=== PATIENT | male | born 1945 | race Caucasian/White ===

== ENCOUNTER 2018-02-25 19:17 | Inpatient (IN) ==
[2018-02-25] MEDS ORDERED: Ketorolac Inj 30 MG/ML (IVP) Vial IV.PUSH ONE (19:51)
--- NOTE | 2018-02-25 19:51 | ED ---
HPI General Chief Complaint: Abdominal Pain Stated Complaint: UPPER ABD PAIN X3DAYS Time Seen by Provider: 02/25/18 19:36 Source: patient and family Mode of arrival: ambulatory Limitations: no limitations History of Present Illness HPI narrative: Patient presents with history of right sided abdominal pain of acute onset this morning about 8 AM. Patient had chills for about 2 hours. Persistent nausea but no emesis. Stools harder than normal and small for the last 3 days. No history of significant problems except for dyspepsia. Patient has had a CABG no cardiac symptomatology. Related Data Home Medications Medication Instructions Recorded Confirmed aspirin 81 mg PO DAILY 02/25/18 02/25/18 atenolol 50 mg PO DAILY 02/25/18 02/25/18 diazepam 10 mg PO BID 02/25/18 02/25/18 ezetimibe 10 mg PO DAILY 02/25/18 02/25/18 lisinopril-hydrochlorothiazide 1 tab PO DAILY 02/25/18 02/25/18 pantoprazole 40 mg PO DAILY 02/25/18 02/25/18 simvastatin 40 mg PO QPM 02/25/18 02/25/18 tramadol 50 mg PO QID 02/25/18 02/25/18 Allergies Allergy/AdvReac Type Severity Reaction Status Date / Time No Known Allergies Allergy Unverified 02/25/18 19:41 Review of Systems ROS: all other systems reviewed are negative [facility] Medical History Medical History Anxiety (Acute) Chronic pain (Acute) Coronary artery disease (Acute) GERD (gastroesophageal reflux disease) (Acute) Hypercholesterolemia (Acute) Hypertension (Acute) Surgical History Surgical History H/O hemorrhoidectomy (Acute) H/O thumb surgery (Acute) Hx of CABG (Acute) Family History Family History Father Myocardial infarct Nuclear sclerosis Social History Social History Substance History: No History of Abuse Second Hand Smoke Exposure: No Smoking Status: Former smoker Tobacco Type: Cigarettes Number of Pack-Years (if former smoker): 22 Smoking End Date: appx 1986 How Often Do You Have a Drink Containing Alcohol: Never Hx Recent Travel: Yes ([facility]) Recent Travel in [facility] within the Last 8 Weeks: Yes Recent Out of Country Travel within the Last 8 Weeks: No Exam Narrative Exam Narrative: GENERAL: Alert and oriented with abdominal pain to epigastrium and right upper quadrant SKIN: Focused skin assessment warm/dry. HEAD: Atraumatic. Normocephalic. EYES: Pupils equal and round. No scleral icterus. No injection or drainage. ENT: No nasal bleeding or discharge. Mucous membranes pink and moist. NECK: Trachea midline. No JVD. CARDIOVASCULAR: Regular rate and rhythm. No murmur appreciated. RESPIRATORY: No accessory muscle use. Clear to auscultation. Breath sounds equal bilaterally. GASTROINTESTINAL: Abdomen with epigastric and right upper quadrant pain and guarding. No rebound. Normal bowel sounds. Hepatic and splenic margins not palpable. MUSCULOSKELETAL: No obvious deformities. No clubbing. No cyanosis. No edema. NEUROLOGICAL: Awake and alert. No obvious cranial nerve deficits. Motor grossly within normal limits. Normal speech. PSYCHIATRIC: Appropriate mood and affect; insight and judgment normal. Course Initial Documented Vital Signs Temperature 98.1 F 02/25/18 19:23 Pulse Rate 69 02/25/18 19:23 Respiratory Rate 18 02/25/18 19:23 Blood Pressure 164/76 H 02/25/18 19:23 Pulse Oximetry 99 02/25/18 19:23 Last Documented Vital Signs Temperature 100.1 F H 02/27/18 00:00 Pulse Rate 86 02/27/18 00:00 Respiratory Rate 18 02/27/18 00:00 Blood Pressure 131/64 02/27/18 00:00 Pulse Oximetry 95 02/27/18 00:00 Critical Care Time Critical Care Time: No Medical Decision Making MDM Narrative Medical decision making narrative: Patient has findings consistent with choledocholithiasis with obstruction. Patient admitted with Dr. Jain for further evaluation and treatment. Medical Screen Exam Complete: Yes Emergency Medical Condition: Yes Lab Data Result diagrams: 02/26/18 06:15 02/26/18 06:15 Lab Results 02/25/18 02/25/18 02/25/18 Range/Units 20:00 20:00 20:00 CBC w Diff Slide review pending WBC 6.1 (4.0-11.0) th/mm3 RBC 5.07 (4.50-5.90) mil/mm3 Hgb 15.3 (13.0-17.0) gm/dL Hct 44.7 (39.0-51.0) % MCV 88.2 (80.0-100.0) fL MCH 30.2 (27.0-34.0) pg MCHC 34.3 (32.0-36.0) % RDW 12.4 (11.6-17.2) % Plt Count 173 (150-450) th/mm3 MPV 7.8 (7.0-11.0) fL Neut % (Auto) 89.5 H (16.0-70.0) % Lymph % (Auto) 3.7 L (9.0-44.0) % [place] % (Auto) 4.2 (0.0-8.0) % Eos % (Auto) 0.1 (0.0-4.0) % Baso % (Auto) 2.5 H (0.0-2.0) % Neut # (Auto) 5.4 (1.8-7.7) th/mm3 Lymph # (Auto) 0.2 L (1.0-4.8) th/mm3 [place] # (Auto) 0.3 (0.0-0.9) th/mm3 Eos # (Auto) 0.0 (0.0-0.4) th/mm3 Baso # (Auto) 0.2 (0.0-0.2) th/mm3 WBC Differential . Diff Scan Auto diff confirmed Differential Comment . Sodium 128 L (136-145) meq/L Potassium 3.5 (3.5-5.1) meq/L Chloride 91 L (98-107) meq/L Carbon Dioxide 24.9 (21.0-32.0) meq/L Anion Gap 12 (5-15) meq/L BUN 17 (7-18) mg/dL Creatinine 1.30 (0.60-1.30) mg/dL Estimated GFR 54 L (>89) mL/min Random Glucose 109 H (74-106) mg/dL Lactic Acid 1.0 (0.4-2.0) mmol/L Calcium 8.5 (8.5-10.1) mg/dL Prot Corrected Calcium (8.5-10.1) mg/dL Total Bilirubin 6.9 H (0.2-1.0) mg/dL AST 73 H (15-37) U/L ALT 107 H (12-78) U/L Alkaline Phosphatase 64 (45-117) U/L Total Protein 7.1 (6.4-8.2) g/dL Albumin 3.8 (3.4-5.0) g/dL Lipase 95 (73-393) U/L Urine Color (Yellw/Straw) Urine Clarity (Clear) Urine pH (5.0-8.5) Ur Specific [place] (1.002-1.035) Urine Protein (Neg-Trace) mg/dL Urine Glucose (UA) (Negative) mg/dL Urine Ketones (Negative) mg/dL Urine Occult Blood (Negative) Urine Nitrate (Negative) Urine Bilirubin (Negative) Urine Ictotest (Negative) Urine Urobilinogen (Less than 2) mg/dL Ur Leukocyte Esterase (Negative) Urine RBC (0-3) /hpf Ur Squamous Epith Cells (0-5) /hpf Micro UA Comment Ur Microscopic Review Urine Culture Comments 02/25/18 02/25/18 02/26/18 Range/Units 22:00 23:30 06:15 CBC w Diff Auto diff final WBC 9.0 (4.0-11.0) th/mm3 RBC 4.75 (4.50-5.90) mil/mm3 Hgb 14.4 (13.0-17.0) gm/dL Hct 42.0 (39.0-51.0) % MCV 88.3 (80.0-100.0) fL MCH 30.3 (27.0-34.0) pg MCHC 34.3 (32.0-36.0) % RDW 13.0 (11.6-17.2) % Plt Count 160 (150-450) th/mm3 MPV 7.6 (7.0-11.0) fL Neut % (Auto) 94.6 H (16.0-70.0) % Lymph % (Auto) 2.8 L (9.0-44.0) % [place] % (Auto) 1.3 (0.0-8.0) % Eos % (Auto) 0.1 (0.0-4.0) % Baso % (Auto) 1.2 (0.0-2.0) % Neut # (Auto) 8.5 H (1.8-7.7) th/mm3 Lymph # (Auto) 0.3 L (1.0-4.8) th/mm3 [place] # (Auto) 0.1 (0.0-0.9) th/mm3 Eos # (Auto) 0.0 (0.0-0.4) th/mm3 Baso # (Auto) 0.1 (0.0-0.2) th/mm3 WBC Differential . Diff Scan Differential Comment . Sodium 132 L (136-145) meq/L Potassium 3.6 (3.5-5.1) meq/L Chloride 97 L (98-107) meq/L Carbon Dioxide 23.4 (21.0-32.0) meq/L Anion Gap 12 (5-15) meq/L BUN 15 (7-18) mg/dL Creatinine 1.20 (0.60-1.30) mg/dL Estimated GFR 59 L (>89) mL/min Random Glucose 100 (74-106) mg/dL Lactic Acid (0.4-2.0) mmol/L Calcium 7.4 L* D (8.5-10.1) mg/dL Prot Corrected Calcium 8.1 L (8.5-10.1) mg/dL Total Bilirubin 7.3 H (0.2-1.0) mg/dL AST 58 H (15-37) U/L ALT 79 H (12-78) U/L Alkaline Phosphatase 56 (45-117) U/L Total Protein 5.8 L D (6.4-8.2) g/dL Albumin 2.9 L D (3.4-5.0) g/dL Lipase (73-393) U/L Urine Color Yellow (Yellw/Straw) Urine Clarity Clear (Clear) Urine pH 6.0 (5.0-8.5) Ur Specific [place] 1.020 (1.002-1.035) Urine Protein Trace (Neg-Trace) mg/dL Urine Glucose (UA) Negative (Negative) mg/dL Urine Ketones 40 H (Negative) mg/dL Urine Occult Blood Small H (Negative) Urine Nitrate Negative (Negative) Urine Bilirubin Moderate H (Negative) Urine Ictotest Positive H (Negative) Urine Urobilinogen 2.0 H (Less than 2) mg/dL Ur Leukocyte Esterase Negative (Negative) Urine RBC 0-3 (0-3) /hpf Ur Squamous Epith Cells 0-5 (0-5) /hpf Micro UA Comment Culture not ind Ur Microscopic Review Microscopic reviewed Urine Culture Comments Culture not ind 02/26/18 Range/Units 06:15 CBC w Diff Auto diff final WBC 12.6 H (4.0-11.0) th/mm3 RBC 4.36 L (4.50-5.90) mil/mm3 Hgb 13.6 (13.0-17.0) gm/dL Hct 39.6 (39.0-51.0) % MCV 90.8 (80.0-100.0) fL MCH 31.1 (27.0-34.0) pg MCHC 34.2 (32.0-36.0) % RDW 12.2 (11.6-17.2) % Plt Count 148 L (150-450) th/mm3 MPV 7.9 (7.0-11.0) fL Neut % (Auto) 88.8 H (16.0-70.0) % Lymph % (Auto) 4.4 L (9.0-44.0) % [place] % (Auto) 6.6 (0.0-8.0) % Eos % (Auto) 0.1 (0.0-4.0) % Baso % (Auto) 0.1 (0.0-2.0) % Neut # (Auto) 11.2 H (1.8-7.7) th/mm3 Lymph # (Auto) 0.6 L (1.0-4.8) th/mm3 [place] # (Auto) 0.8 (0.0-0.9) th/mm3 Eos # (Auto) 0.0 (0.0-0.4) th/mm3 Baso # (Auto) 0.0 (0.0-0.2) th/mm3 WBC Differential . Diff Scan Differential Comment . Sodium (136-145) meq/L Potassium (3.5-5.1) meq/L Chloride (98-107) meq/L Carbon Dioxide (21.0-32.0) meq/L Anion Gap (5-15) meq/L BUN (7-18) mg/dL Creatinine (0.60-1.30) mg/dL Estimated GFR (>89) mL/min Random Glucose (74-106) mg/dL Lactic Acid (0.4-2.0) mmol/L Calcium (8.5-10.1) mg/dL Prot Corrected Calcium (8.5-10.1) mg/dL Total Bilirubin (0.2-1.0) mg/dL AST (15-37) U/L ALT (12-78) U/L Alkaline Phosphatase (45-117) U/L Total Protein (6.4-8.2) g/dL Albumin (3.4-5.0) g/dL Lipase (73-393) U/L Urine Color (Yellw/Straw) Urine Clarity (Clear) Urine pH (5.0-8.5) Ur Specific [place] (1.002-1.035) Urine Protein (Neg-Trace) mg/dL Urine Glucose (UA) (Negative) mg/dL Urine Ketones (Negative) mg/dL Urine Occult Blood (Negative) Urine Nitrate (Negative) Urine Bilirubin (Negative) Urine Ictotest (Negative) Urine Urobilinogen (Less than 2) mg/dL Ur Leukocyte Esterase (Negative) Urine RBC (0-3) /hpf Ur Squamous Epith Cells (0-5) /hpf Micro UA Comment Ur Microscopic Review Urine Culture Comments Imaging Data Radiologist's impression: Abdomen/Pelvis CT 02/25/18 19:51 CONCLUSION: 1. 2 calcified gallstones. 2. Colonic diverticula without radiographic evidence of diverticulitis. Gallbladder Ultrasound 02/25/18 19:51 CONCLUSION: 1. 2 gallstones and probable sludge within the lumen. 2. Marked dilation of the common hepatic duct measuring up to 14 mm. No definite intraluminal defects seen. 3. Mild dilation of the central intrahepatic biliary ducts. 4. Mild hepatomegaly without focal lesion. Cholangiopancreatography MRI 02/26/18 00:00 CONCLUSION: 1. Gallbladder is distended with wall edema and contains at least 2 stones. Recent ultrasound indicated an absent sonographic Donaldson sign suggesting against acute cholecystitis. Therefore, these changes could also be seen with chronic cholecystitis. Nuclear medicine hepatobiliary examination is currently ordered and I can't evaluate for cystic duct obstruction. 2. Dilated common hepatic and common bile duct, as above. There is no intrahepatic bile duct dilatation in the distal common duct tapers to normal size near the ampulla. There is no common duct stone seen. The cause for the dilatation is not identified. Discharge Plan Discharge Disposition Patient Disposition: 30 Still Patient Discharge Details Diagnosis: Choledocholithiasis with obstruction Physicians Team ED Provider: Yony Levine Primary Care Provider: Itz Dominguez Attending Provider: Hussein Mosley Other Providers: Isaac Diego ED Status: Left Department Discharge Information Discharge Date/Time: 02/26/18 00:40
[2018-02-25] MEDS ORDERED: Sod Chloride 0.9% Inj 1,000 ML IV.CONT SCH (20:00)
--- NOTE | 2018-02-25 20:28 | CT ---
EXAM DATE: 02/25/2018 7:59 PM EDT AGE/SEX: 73 years / Male INDICATIONS: Right upper quadrant pain. CLINICAL DATA: This is the patient's initial encounter. Patient reports that signs and symptoms have been present for 3 days and indicates a pain score of 7/10. MEDICAL/SURGICAL HISTORY: Cardiovascular disease. Gastroesophageal reflux disease. Hypertensi on. CABG. RADIATION DOSE: 12.48 CTDI (mGy) COMPARISON: No prior exams available for comparison. TECHNIQUE: Multiple contiguous axial images were obtained through the abdomen. Images were obtained using multiple row detector helical technique. Using automated exposure control and adjustment of the mA and/or kV according to patient size, radiation dose was kept as low as reasonably achievable to o btain optimal diagnostic quality images. DICOM format image data is available electronically for rev iew and comparison. FINDINGS: Lower Lungs: The visualized lower lungs are clear. Liver: The liver has a homogeneous density without space-occupying lesion for noncontrast technique. There is no dilation of the biliary tree. There are 2 calcified gallstones within the lumen measuring 5 mm. Spleen: Homogeneous density without enlargement. Pancreas: Unremarkable without mass or calcification. Kidneys: Normal in size and shape. No evidence of mass or hydronephrosis. Adrenal Glands: Unremarkable. Aorta: The aorta and proximal iliac vessels are grossly unremarkable without aneurysmal dilation. Bowel/Mesentery: No dilated loops of small or large bowel. Small diverticula in the left colon and s igmoid colon without radiographic evidence of diverticulitis. No evidence of free fluid. Abdominal Wall: Intact. Retroperitoneum: No evidence of adenopathy in the retrocrural, para-aortic, or deep pelvic regions. Bladder: Contours are smooth. Reproductive Organs: No abnormal masses or calcifications seen. Inguinal: The inguinal region is unremarkable without evidence of adenopathy. Bony Structures: Unremarkable. CONCLUSION: 1. 2 calcified gallstones. 2. Colonic diverticula without radiographic evidence of diverticulitis. Electronically signed by: Quintin Rodriguez MD 02/25/2018 8:26 PM EDT
[2018-02-25 20:29] LABS: Baso # (Auto) 0.2 th/mm3 (0.0-0.2); Baso % (Auto) 2.5 % (0.0-2.0); Chloride 91 meq/L (98-107); Eos % (Auto) 0.1 % (0.0-4.0); Hematocrit 44.7 % (39.0-51.0); Hemoglobin 15.3 gm/dL (13.0-17.0); Lymph # (Auto) 0.2 th/mm3 (1.0-4.8); Lymph % (Auto) 3.7 % (9.0-44.0); Mean Corpuscular HGB Conc 34.3 % (32.0-36.0); Mean Corpuscular Hemoglobin 30.2 pg (27.0-34.0); Mean Corpuscular Volume 88.2 fL (80.0-100.0); Mean Platelet Volume 7.8 fL (7.0-11.0); Mono # (Auto) 0.3 th/mm3 (0.0-0.9); Mono % (Auto) 4.2 % (0.0-8.0); Neut # (Auto) 5.4 th/mm3 (1.8-7.7); Neut % (Auto) 89.5 % (16.0-70.0); Platelet Count 173 th/mm3 (150-450); Potassium 3.5 meq/L (3.5-5.1); Red Blood Count 5.07 mil/mm3 (4.50-5.90); Red Cell Distribution Width 12.4 % (11.6-17.2); Sodium 128 meq/L (136-145); White Blood Count 6.1 th/mm3 (4.0-11.0)
[2018-02-25 20:32] LABS: Calcium 8.5 mg/dL (8.5-10.1)
[2018-02-25 20:33] LABS: Albumin 3.8 g/dL (3.4-5.0); Anion Gap 12 meq/L (5-15); Blood Urea Nitrogen 17 mg/dL (7-18); Carbon Dioxide 24.9 meq/L (21.0-32.0); Glucose,Random 109 mg/dL (74-106); Lipase 95 U/L (73-393)
[2018-02-25 20:36] LABS: Alanine Aminotransferase 107 U/L (12-78); Aspartate Aminotransferase 73 U/L (15-37); Glomerular Filtration Rate 54 mL/min (>89)
[2018-02-25 20:38] LABS: Total Protein 7.1 g/dL (6.4-8.2)
[2018-02-25 20:39] LABS: Alkaline Phosphatase 64 U/L (45-117)
--- NOTE | 2018-02-25 22:00 | US ---
EXAM DATE: 02/25/2018 7:51 PM EDT AGE/SEX: 73 years / Male INDICATIONS: Right upper quadrant pain. CLINICAL DATA: This is the patient's initial encounter. Patient reports that signs and symptoms have been present for 2 days and indicates a pain score of 10/10. MEDICAL/SURGICAL HISTORY: Gastroesophageal reflux disease. Hypercholesterolemia. Hypertension . Anxiety. Chronic pain. Coronary artery disease. CABG. COMPARISON: [facility], CT ABDOMEN & PELVIS W/O CONTRAST, 02/25/2018. . MEASUREMENTS: Liver:__ 16.7 cm. Common Bile Duct:__ 14mm. FINDINGS: Liver: No focal lesions seen within the liver. There is mild dilation of the intrahepatic biliary du cts near the [place]. Portal Vein: Hepatopedal flow seen in portal vein. Common Duct: No intraluminal mass or stone visualized. Gallbladder: There are 2 echogenic foci with shadowing in the gallbladder lumen measuring 6 mm and 4 mm. There is also diffuse increased echoes within the lumen of gallbladder suggesting sludge. The ga llbladder wall is normal in thickness. No pericholecystic fluid. Pancreas: Not well visualized. Right Kidney: Normal renal cortical thickness. No evidence of hydronephrosis. Other: None. CONCLUSION: 1. 2 gallstones and probable sludge within the lumen. 2. Marked dilation of the common hepatic duct measuring up to 14 mm. No definite intraluminal defect s seen. 3. Mild dilation of the central intrahepatic biliary ducts. 4. Mild hepatomegaly without focal lesion. Electronically signed by: Quintin Rodriguez MD 02/25/2018 9:59 PM EDT
[2018-02-25 22:19] LABS: Bilirubin,Urine Moderate (Negative); Clarity,Urine Clear (Clear); Color,Urine Yellow (Yellw/Straw); Glucose,Urine (UA) Negative (Negative); Leukocyte Esterase,Urine Negative (Negative); Nitrite,Urine Negative (Negative)
[2018-02-25 22:20] LABS: Ictotest,Urine Positive (Negative)
[2018-02-25 22:28] LABS: RBC,Urine 0-3 /hpf (0-3); Squamous Epithelial Cell,Urine 0-5 /hpf (0-5)
[2018-02-25] MEDS: Morphine Inj 4 MG/ML Vial IV.PUSH PRN (22:34)
[2018-02-25] MEDS ORDERED: [UNRECOGNIZED DRUG - OTHER] INTRATHECA SCH (23:15)
[2018-02-25] MEDS ORDERED: MethylPREDNISolone Sod Succinate Inj 125 MG/2 ML Vial IV.PUSH ONE (23:19)
[2018-02-25 23:52] LABS: Baso # (Auto) 0.1 th/mm3 (0.0-0.2); Baso % (Auto) 1.2 % (0.0-2.0); Eos % (Auto) 0.1 % (0.0-4.0); Hemoglobin 14.4 gm/dL (13.0-17.0); Lymph # (Auto) 0.3 th/mm3 (1.0-4.8); Lymph % (Auto) 2.8 % (9.0-44.0); Mean Corpuscular HGB Conc 34.3 % (32.0-36.0); Mean Corpuscular Hemoglobin 30.3 pg (27.0-34.0); Mean Corpuscular Volume 88.3 fL (80.0-100.0); Mean Platelet Volume 7.6 fL (7.0-11.0); Mono # (Auto) 0.1 th/mm3 (0.0-0.9); Mono % (Auto) 1.3 % (0.0-8.0); Neut # (Auto) 8.5 th/mm3 (1.8-7.7); Neut % (Auto) 94.6 % (16.0-70.0); Platelet Count 160 th/mm3 (150-450); Red Blood Count 4.75 mil/mm3 (4.50-5.90)
[2018-02-26] MEDS ORDERED: Piperacil/Tazo 3.375 GM Premix 50 ML IV.SIG SCH (01:00)
--- NOTE | 2018-02-26 07:06 | P.HP ---
History of Present Illness Service: [facility] Adult med Primary Care Physician: Itz Dominguez Chief Complaint: abd pain, nausea History of Present Illness: 73-year-old male known to me from previous outpatient care with history of hypertension, hyperlipidemia and coronary artery disease presented to the ER yesterday with complaint of abdominal pain which is actually been going on for approximately 3 days prior to arrival. Patient had been up at a hunting camp in [place] this past week doing some physical labor restoring the camp. He noted some abdominal pain and cramping after he ate some Melissa sausage night which would have been approximately 3.5 days ago. He also noted that he had chills when the pain was really severe on the day prior to presentation. He has had persistent nausea but no vomiting. He denies any chest pain or shortness of breath. Denies any hemoptysis or hematemesis. No hematochezia or melena. His bowel movements have been a bit more firm over the last couple of days that he admittedly has not been eating or drinking much as this tends to cause a flare in his abdominal pain. Evaluation in the ER noted for CT scan which demonstrated 2 gallstones and a right upper quadrant ultrasound demonstrating 2 gallstones with dilatation of the common hepatic duct and likely sludge accumulation. His lipase and white blood cell count were normal. He did have a low-grade fever of 100.4 overnight. He has been started on antibiotics, anti-emetics, IV pain medication and IV fluid. He reports that he feels much better this morning. He was given a dose of IV Dilaudid in the ER and 3 mg morphine IV around 10:30 PM last night. He has not required any pain medication since that time. He still remains nauseated this morning but his abdominal pain is much improved he reports. He had episode of chills overnight as well. - Diagnosis (1) Choledocholithiasis with obstruction (2) Hypertension (3) Hyperlipidemia (4) GERD (gastroesophageal reflux disease) Inpatient Certification: I certify that the inpatient services were ordered in accordance with Medicare regulations governing the order. This includes certification that hospital inpatient services are reasonable and necessary and in the case of services not specified as inpatient-only under 42 CFR 419.22(n), that they are appropriately provided as inpatient services in accordance to with the 2-midnight benchmark under 43 CFR 412.3(e) Review of Systems Constitutional: Reports anorexia, Reports chills, Reports fatigue Eyes: Denies blind spots, Denies blurry vision, Denies bulging eyes, Denies change in vision, Denies double vision, Denies discharge, Denies dry eyes, Denies floaters, Denies irritation, Denies itchy eyes, Denies loss of vision, Denies pain, Denies requires corrective lenses, Denies sensitivity to light, Denies other Cardiovascular: Denies chest pain, Denies chest pain at rest, Denies chest pain with activity, Denies excessive sweating, Denies fainting, Denies fast heart rate, Denies foot swelling, Denies generalized swelling, Denies irregular heart rhythm, Denies leg pain with activity, Denies leg sores, Denies leg swelling, Denies lightheadedness, Denies radiating jaw, neck or arm pain, Denies rapid, pounding, or irregular heartbeat, Denies shortness of breath, Denies shortness of breath with activity, Denies shortness of breath when lying down, Denies shortness of breath causing sudden awakening, Denies slow heart rate, Denies other Respiratory: Denies change in phlegm color, Denies chest congestion, Denies cough, Denies coughing up blood, Denies excessive phlegm production, Denies pain on inspiration, Denies pain with cough, Denies shortness of breath, Denies shortness of breath with activity, Denies snoring, Denies stridor, Denies wheezing, Denies other Gastrointestinal: Reports abdominal pain, Reports belching, Reports change in stools, Reports constipation, Reports cramping, Reports nausea, Denies black, tarry stools, Denies bloating, Denies bright, red blood in stools, Denies change in bowel habits, Denies constant urge to pass stool, Denies coffee ground vomit, Denies difficulty swallowing, Denies excessive passing of gas, Denies feeling full early, Denies heartburn, Denies incontinent of stools, Denies loose stools, Denies pain with swallowing, Denies vomiting, Denies vomiting blood, Denies other Musculoskeletal: Reports back pain, Reports joint pain Neurologic: Denies abnormal hearing, Denies abnormal movements, Denies abnormal speech, Denies abnormal walking, Denies behavioral changes, Denies burning sensations, Denies confusion, Denies dizziness, Denies fainting, Denies frequent falls, Denies headache(s), Denies lack of coordination, Denies localized weakness, Denies loss of vision, Denies memory loss, Denies numbness, Denies other visual disturbances, Denies radiating pain, Denies restless legs, Denies convulsions, Denies seizure-like activity, Denies sensory deficit, Denies tingling, Denies tingling/numbness/burning sensations, Denies tremor(s), Denies unsteadiness, Denies weakness, Denies other Psychiatric: Denies abnormal sleep pattern, Denies anxiety, Denies behavioral changes, Denies change in appetite, Denies change in sex drive, Denies confusion , Denies depression, Denies difficulty concentrating, Denies hearing things others do not hear, Denies hopelessness, Denies irritability, Denies lack of enjoyment, Denies memory loss, Denies mood swings, Denies panic attacks, Denies paranoia, Denies seeing things others do not see, Denies sensing things others do not sense, Denies tactile hallucinations, Denies thoughts of hurting/killing others, Denies thoughts of hurting/killing yourself, Denies other PMFSH - History History Provided By: Patient - Medical History Medical History: Medical History (Last Reviewed 02/25/18 @ 19:50 by Yony Levine MD) Anxiety Chronic pain Coronary artery disease GERD (gastroesophageal reflux disease) Hypercholesterolemia Hypertension - Surgical History Surgical History: Surgical History (Last Updated 02/26/18 @ 06:56 by Dax Jain MD, PhD) H/O hemorrhoidectomy H/O thumb surgery Hx of CABG - Family History Family History: Family History (Last Updated 02/26/18 @ 06:57 by Dax Jain MD, PhD) Father Myocardial infarct Nuclear sclerosis - Social History I have reviewed the patient's Social History: Yes - Tobacco History Second Hand Smoke Exposure: No Tobacco Use In Past 30 Days: No Smoking Status: Former smoker Tobacco Type: Cigarettes Number of Pack Years (if former smoker): 22 Smoking End Date: appx 1986 - Alcohol History How Often Do You Have a Drink Containing Alcohol: Never - Substance Use History Substance History: No History of Abuse - Travel History History of Recent Travel: Yes ([facility]) Recent Travel in the [facility] Within the Last 8 Weeks: Yes Recent Travel Out of the Country Within the Last 8 Weeks: No - Immunization History Tetanus Immunization: Unsure Hx Influenza Vaccine This Season: No Medications and Allergies Active Medications: Active Medications Atenolol (Tenormin) 50 mg PO DAILY BLAKE Potassium Chloride/Sodium Chloride (Ns + Kcl 20 Meq Inj) 1,000 mls @ 100 mls/ hr IV.CONT .Q10H BLAKE Stop: 02/26/18 10:14 Last Admin: 02/26/18 00:52 Dose: 100 mls/hr Piperacillin/Tazobactam/Dextrose (Zosyn 3.375 Gm Premix) 50 mls @ 100 mls/hr IV.SIG Q8H BLAKE Lorazepam (Ativan Inj) 1 mg IV.PUSH Q4H PRN PRN Reason: anxiety, agitation Last Admin: 02/25/18 22:15 Dose: 1 mg Morphine Sulfate (Morphine Inj) 3 mg IV.PUSH Q3H PRN PRN Reason: PAIN SCALE 3 TO 10 Last Admin: 02/25/18 22:34 Dose: 3 mg Ondansetron HCl (Zofran Inj) 4 mg IV.PUSH Q6H PRN PRN Reason: nausea, vomiting Pantoprazole Sodium (Protonix) 40 mg PO DAILY BLAKE Sodium Chloride (Ns Flush) 2 ml IV.FLUSH PRN PRN PRN Reason: FLUSH AFTER USING IV ACCESS Allergies Allergy/AdvReac Type Severity Reaction Status Date / Time No Known Allergies Allergy Unverified 02/25/18 19:41 Home Medications Medication Instructions Recorded Confirmed Type aspirin 81 mg PO DAILY 02/25/18 02/25/18 History atenolol 50 mg PO DAILY 02/25/18 02/25/18 History diazepam 10 mg PO BID 02/25/18 02/25/18 History ezetimibe 10 mg PO DAILY 02/25/18 02/25/18 History lisinopril-hydrochlorothiazide 1 tab PO DAILY 02/25/18 02/25/18 History pantoprazole 40 mg PO DAILY 02/25/18 02/25/18 History simvastatin 40 mg PO QPM 02/25/18 02/25/18 History tramadol 50 mg PO QID 02/25/18 02/25/18 History Exam Vital signs: Vital Signs 02/25/18 19:23 02/25/18 20:49 02/25/18 21:46 Temperature 98.1 F Pulse Rate 69 86 Respiratory Rate 18 15 15 Blood Pressure 164/76 H 135/77 Pulse Oximetry 99 96 02/25/18 21:47 02/26/18 00:33 02/26/18 01:00 Temperature 99.4 F Pulse Rate 99 H Respiratory Rate 15 Blood Pressure 111/64 Pulse Oximetry 99 98 96 02/26/18 01:20 02/26/18 04:00 Temperature 100.4 F H 97.4 F L Pulse Rate 105 H 85 Respiratory Rate 20 20 Blood Pressure 98/57 L 103/54 L Pulse Oximetry 96 95 Intake & Output 02/25/18 02/25/18 02/26/18 06:59 18:59 06:59 Intake Total 1150 / 1150 Balance 1150 / 1150 Weight 82.2 kg Intake: IV 1150 / 1150 NS Inj 1,000 ML @ 500 mls/hr IV 1000 / 1000 .CONT .Q2H BLAKE Rx#:[id number] INVanz Inj 1,000 MG In NS Inj 100 / 100 100 ML @ 200 mls/hr IV.SIG ONCE ONE Rx#:[id number] Zosyn 3.375 GM Premix 50 ML @ 50 / 50 100 mls/hr IV.SIG Q8H BLAKE Rx#: [id number] Oral 0 / 0 Other: # Voids 1 Date of Last Bowel Movement 02/25/18 Weight On Admission 82.2 kg Narrative: GENERAL: Well-developed male lying supine in bed. Alert and oriented. Recalls me from previous outpatient care. SKIN: Warm and dry. Postsurgical scar left forearm volar aspect and bilateral thumbs. HEAD: Atraumatic. Normocephalic. EYES: Pupils equal and round. No scleral icterus. No injection or drainage. ENT: No nasal bleeding or discharge. Mucous membranes pink and moist. NECK: Trachea midline. No JVD. CARDIOVASCULAR: Regular rate and rhythm. No significant murmur appreciated. RESPIRATORY: No accessory muscle use. Clear to auscultation. Breath sounds equal bilaterally. GASTROINTESTINAL: Abdomen soft, nondistended. Minimal tenderness palpation in epigastrium and right upper quadrant. No guarding or rebound. Bowel sounds normal. Hepatic and splenic margins not palpable. MUSCULOSKELETAL: Extremities without clubbing, cyanosis, or edema. No obvious deformities. NEUROLOGICAL: Awake and alert. No obvious cranial nerve deficits. Motor grossly within normal limits. Five out of 5 muscle strength in the arms and legs. Normal speech. PSYCHIATRIC: Appropriate mood and affect; insight and judgment normal. Results - Labs CBC & Chem 7: 02/25/18 23:30 02/25/18 20:00 Labs: Laboratory Results - last 24 hr 02/25/18 02/25/18 02/25/18 20:00 20:00 20:00 CBC w Diff Slide review pending WBC 6.1 RBC 5.07 Hgb 15.3 Hct 44.7 MCV 88.2 MCH 30.2 MCHC 34.3 RDW 12.4 Plt Count 173 MPV 7.8 Neut % (Auto) 89.5 H Lymph % (Auto) 3.7 L [place] % (Auto) 4.2 Eos % (Auto) 0.1 Baso % (Auto) 2.5 H Neut # (Auto) 5.4 Lymph # (Auto) 0.2 L [place] # (Auto) 0.3 Eos # (Auto) 0.0 Baso # (Auto) 0.2 WBC Differential . Diff Scan Auto diff confirmed Differential Comment . Sodium 128 L Potassium 3.5 Chloride 91 L Carbon Dioxide 24.9 Anion Gap 12 BUN 17 Creatinine 1.30 Estimated GFR 54 L Random Glucose 109 H Lactic Acid 1.0 Calcium 8.5 Total Bilirubin 6.9 H AST 73 H ALT 107 H Alkaline Phosphatase 64 Total Protein 7.1 Albumin 3.8 Lipase 95 Urine Color Urine Clarity Urine pH Ur Specific [place] Urine Protein Urine Glucose (UA) Urine Ketones Urine Occult Blood Urine Nitrate Urine Bilirubin Urine Ictotest Urine Urobilinogen Ur Leukocyte Esterase Urine RBC Ur Squamous Epith Cells Micro UA Comment Ur Microscopic Review Urine Culture Comments 02/25/18 02/25/18 22:00 23:30 CBC w Diff Auto diff final WBC 9.0 RBC 4.75 Hgb 14.4 Hct 42.0 MCV 88.3 MCH 30.3 MCHC 34.3 RDW 13.0 Plt Count 160 MPV 7.6 Neut % (Auto) 94.6 H Lymph % (Auto) 2.8 L [place] % (Auto) 1.3 Eos % (Auto) 0.1 Baso % (Auto) 1.2 Neut # (Auto) 8.5 H Lymph # (Auto) 0.3 L [place] # (Auto) 0.1 Eos # (Auto) 0.0 Baso # (Auto) 0.1 WBC Differential . Diff Scan Differential Comment . Sodium Potassium Chloride Carbon Dioxide Anion Gap BUN Creatinine Estimated GFR Random Glucose Lactic Acid Calcium Total Bilirubin AST ALT Alkaline Phosphatase Total Protein Albumin Lipase Urine Color Yellow Urine Clarity Clear Urine pH 6.0 Ur Specific [place] 1.020 Urine Protein Trace Urine Glucose (UA) Negative Urine Ketones 40 H Urine Occult Blood Small H Urine Nitrate Negative Urine Bilirubin Moderate H Urine Ictotest Positive H Urine Urobilinogen 2.0 H Ur Leukocyte Esterase Negative Urine RBC 0-3 Ur Squamous Epith Cells 0-5 Micro UA Comment Culture not ind Ur Microscopic Review Microscopic reviewed Urine Culture Comments Culture not ind - Imaging Impressions Abdomen/Pelvis CT 02/25/18 19:51 CONCLUSION: 1. 2 calcified gallstones. 2. Colonic diverticula without radiographic evidence of diverticulitis. Gallbladder Ultrasound 02/25/18 19:51 CONCLUSION: 1. 2 gallstones and probable sludge within the lumen. 2. Marked dilation of the common hepatic duct measuring up to 14 mm. No definite intraluminal defects seen. 3. Mild dilation of the central intrahepatic biliary ducts. 4. Mild hepatomegaly without focal lesion. Caprini VTE Risk Assessment Caprini VTE Risk Assessment: Moderate/High Risk (score >= 2) Caprini Risk Assessment Model: Point Value = 1 Point Value = 2 Point Value = 3 Point Value = 5 Age 41-60 Minor surgery BMI > 25 kg/m2 Swollen legs Varicose veins or History of unexplained or recurrent spontaneous Oral contraceptives or hormone replacement Sepsis (< 1 month) Serious lung disease, including pneumonia (< 1 month) Abnormal pulmonary function Acute myocardial infarction Congestive heart failure (< 1 month) History of inflammatory bowel disease Medical patient at bed rest Age 61-74 Arthroscopic surgery Major open surgery (> 45 min) Laparoscopic surgery (> 45 min) Malignancy Confined to bed (> 72 hours) Immobilizing plaster cast Central venous access Age >= 75 History of VTE Family history of VTE Factor V Leiden Prothrombin [id number] Lupus anticoagulant Anticardiolipin antibodies Elevated serum homocysteine Heparin-induced thrombocytopenia Other congenital or acquired thrombophilia Stroke (< 1 month) Elective arthroplasty Hip, pelvis, or leg fracture Acute spinal cord injury (< 1 month) Prophylaxis Regimen: Total Risk Factor Score Risk Level Prophylaxis Regimen 0-1 Low Early ambulation 2 Moderate Order ONE of the following: *Sequential Compression Device (SCD) *Heparin 5000 units SQ BID 3-4 Higher Order ONE of the following medications: *Heparin 5000 units SQ TID *Enoxaparin/Lovenox 40 mg SQ daily (WT < 150 kg, CrCl > 30 mL/min) *Enoxaparin/Lovenox 30 mg SQ daily (WT < 150 kg, CrCl > 10-29 mL/min) *Enoxaparin/Lovenox 30 mg SQ BID (WT < 150 kg, CrCl > 30 mL/min) AND/OR *Sequential Compression Device (SCD) 5 or more Highest Order ONE of the following medications: *Heparin 5000 units SQ TID (Preferred with Epidurals) *Enoxaparin/Lovenox 40 mg SQ daily (WT < 150 kg, CrCl > 30 mL/min) *Enoxaparin/Lovenox 30 mg SQ daily (WT < 150 kg, CrCl > 10-29 mL/min) *Enoxaparin/Lovenox 30 mg SQ BID (WT < 150 kg, CrCl > 30 mL/min) AND *Sequential Compression Device (SCD) Assessment and Plan - Assessment (1) Choledocholithiasis with obstruction Code(s): K80.51 - Calculus of bile duct without cholangitis or cholecystitis with obstruction Status: Acute Plan: Pain well controlled currently. We will have GI see the patient to evaluate for need for possible ERCP. Continue IV fluids, pain medication and antiemetic and antibiotic. (2) Hypertension Code(s): I10 - Essential (primary) hypertension Status: Acute Plan: Blood pressure a bit low recently. Will provide parameters for holding medication. (3) Hyperlipidemia Code(s): E78.5 - Hyperlipidemia, unspecified Status: Acute Plan: Resume medication at discharge once LFTs normalizing. (4) GERD (gastroesophageal reflux disease) Code(s): K21.9 - Gastro-esophageal reflux disease without esophagitis Status: Acute Plan: Continue PPI. - Plan Code Status: full Discussed Condition With: Patient and ER provider. (1) Choledocholithiasis with obstruction Qualifiers: Cholecystitis presence: without cholecystitis Qualified Code(s): K80.51 - Calculus of bile duct without cholangitis or cholecystitis with obstruction (2) Hypertension Qualifiers: Hypertension type: essential hypertension Qualified Code(s): I10 - Essential (primary) hypertension
[2018-02-26 07:57] LABS: Baso % (Auto) 0.1 % (0.0-2.0); Eos % (Auto) 0.1 % (0.0-4.0); Hematocrit 39.6 % (39.0-51.0); Hemoglobin 13.6 gm/dL (13.0-17.0); Lymph # (Auto) 0.6 th/mm3 (1.0-4.8); Lymph % (Auto) 4.4 % (9.0-44.0); Mean Corpuscular HGB Conc 34.2 % (32.0-36.0); Mean Corpuscular Hemoglobin 31.1 pg (27.0-34.0); Mean Corpuscular Volume 90.8 fL (80.0-100.0); Mean Platelet Volume 7.9 fL (7.0-11.0); Mono # (Auto) 0.8 th/mm3 (0.0-0.9); Mono % (Auto) 6.6 % (0.0-8.0); Neut # (Auto) 11.2 th/mm3 (1.8-7.7); Neut % (Auto) 88.8 % (16.0-70.0); Platelet Count 148 th/mm3 (150-450); Red Blood Count 4.36 mil/mm3 (4.50-5.90); Red Cell Distribution Width 12.2 % (11.6-17.2); White Blood Count 12.6 th/mm3 (4.0-11.0)
[2018-02-26 08:02] LABS: Potassium 3.6 meq/L (3.5-5.1)
[2018-02-26 08:21] LABS: Albumin 2.9 g/dL (3.4-5.0); Calcium 7.4 mg/dL (8.5-10.1); Carbon Dioxide 23.4 meq/L (21.0-32.0); Total Protein 5.8 g/dL (6.4-8.2)
[2018-02-26] MEDS: Piperacil/Tazo 3.375 GM Premix 50 ML IV.SIG SCH ×2 (08:39→16:09)
[2018-02-26] MEDS: Atenolol 50 MG Tablet PO SCH (08:40)
--- NOTE | 2018-02-26 10:57 | MR ---
EXAM DATE: 02/26/2018 12:00 AM EDT AGE/SEX: 73 years / Male INDICATIONS: Obstruction. Jaundice. CLINICAL DATA: This is the patient's initial encounter. Patient reports that signs and symptoms have been present for 1 day and indicates a pain score of 5/10. MEDICAL/SURGICAL HISTORY: Hypercholesterolemia. Cardiovascular disease. Hypertension. CABG. H emorrhoidectomy COMPARISON: [facility], CT ABDOMEN & PELVIS W/O CONTRAST, 02/25/2018. . TECHNIQUE: Multiplanar, multisequence images of the abdomen were obtained without contrast including dedicated cholangiographic images. FINDINGS: Liver: The liver is normal in size and signal intensity. No focal lesion is appreciated on this nonc ontrast examination. Intrahepatic Bile Ducts: There is no intrahepatic biliary ductal dilatation. Common Bile Duct: The common hepatic duct measures 12 mm, the proximal common bile duct measures 11 mm, in the distal common bile duct tapers to 5 mm near the ampulla. No stone is visualized within the common bile duct. Gallbladder: Gallbladder is distended with mild wall edema. There are at least 2 small stones in the gallbladder lumen. Pancreas: The pancreas appears normal in signal with no focal parenchymal abnormalities. The pancrea tic duct is normal in caliber with no filling defects, or obstructing lesions identified. Other: The visualized surrounding structures demonstrate no acute finding. There is atherosclerotic d isease of the aorta with ectatic infrarenal aorta measuring up to 2.9 cm. CONCLUSION: 1. Gallbladder is distended with wall edema and contains at least 2 stones. Recent ultrasound indica boris an absent sonographic Donaldson sign suggesting against acute cholecystitis. Therefore, these change s could also be seen with chronic cholecystitis. Nuclear medicine hepatobiliary examination is curren tly ordered and I can't evaluate for cystic duct obstruction. 2. Dilated common hepatic and common bile duct, as above. There is no intrahepatic bile duct dilatat ion in the distal common duct tapers to normal size near the ampulla. There is no common duct stone s een. The cause for the dilatation is not identified. Electronically signed by: Manny Gandhi MD 02/26/2018 10:55 AM EDT
[2018-02-26] MEDS ORDERED: Sodium Chlor 0.9% Inj 500 ML IV.SIG ONE (11:00)
--- NOTE | 2018-02-26 14:22 | P.CONGI ---
History of Present Illness Consult date: 02/26/18 Consult reason: Choledocholithiasis, evaluate for ERCP Chief complaint: choledocholithiasis with obstruction and area of History of Present Illness: This is a 73-year-old well-nourished male who was in his usual state of health up until approximately 4 days ago when he developed an upper mid abdominal pain while he was at a hunting count in [place]. Initial aggregating factor could have been being a sausage that patient ate the night his abdominal pain initiated and he had no real relieving factors. Patient notes he also had symptoms of some nausea and one episode of vomiting after he got to the [place] emergency room after drinking a carbonated drink. Patient denies any obvious hematemesis or rectal bleeding he does note some chills off and on. For the last 2-3 days patient did note a decreased appetite and tried not to eat and drink as much to hopefully maintain the abdominal pain. Patient presented initially to the [facility] and was then transition to the [facility] to be followed and seen per gastroenterology for possible evaluation of ERCP. Labs show current hemoglobin 13.6, WBC count 12.6 mild leukocytosis, bilirubin 7.3, initially AST was 73 and is now 58, ALT 107 now 79 , albumin decreased to 2.9. Patient usually has normal transient bowel movements with 1-2 a day but now states that stools have been loose brown for the past couple of days. Patient does note previous EGD and colonoscopy approximately 5 years ago and that was in hospital setting and does note a history of GERD which he takes PPI for at home. Gallbladder ultrasound performed on 02/25/2018 showed 2 gallstones and probable sludge within the lumen. Marked dilatation of the common hepatic duct measuring up to 14 mm no definite intraluminal defects seen. Mild dilatation of the central intrahepatic biliary ducts. Mild hepatomegaly without focal lesion. MRCP showed gallbladder distended with wall edema and at least 2 stones. Recent ultrasound indicated absent Donaldson sign suggesting against acute cholecystitis therefore these changes could be chronic. Common hepatic and common bile duct are dilated. There is no hepatic duct dilatation in the common bile duct tapers to normal size near the ampulla. There is no common duct stones seen. <Diana Berry - Last Filed: 02/26/18 14:22> Review of Systems All other systems reviewed negative except as stated in HPI <Diana Berry - Last Filed: 02/26/18 14:22> [facility] - History History Provided By: Patient - Medical History Medical History: Medical History (Last Reviewed 02/25/18 @ 19:50 by Yony Levine MD) Anxiety Chronic pain Coronary artery disease GERD (gastroesophageal reflux disease) Hypercholesterolemia Hypertension - Surgical History Surgical History: Surgical History (Last Updated 02/26/18 @ 06:56 by Dax Jain MD, PhD) H/O hemorrhoidectomy H/O thumb surgery Hx of CABG - Family History Family History: Family History (Last Updated 02/26/18 @ 06:57 by Dax Jain MD, PhD) Father Myocardial infarct Nuclear sclerosis - Tobacco History Second Hand Smoke Exposure: No Tobacco Use In Past 30 Days: No Smoking Status: Former smoker Tobacco Type: Cigarettes Number of Pack Years (if former smoker): 22 Smoking End Date: appx 1986 - Alcohol History How Often Do You Have a Drink Containing Alcohol: Never - Substance Use History Substance History: No History of Abuse - Travel History History of Recent Travel: Yes ([facility]) Recent Travel in the [facility] Within the Last 8 Weeks: Yes Recent Travel Out of the Country Within the Last 8 Weeks: No - Immunization History Tetanus Immunization: Unsure Hx Influenza Vaccine This Season: No <Diana Berry - Last Filed: 02/26/18 14:22> - Medical History Medical History: Medical History (Last Reviewed 02/25/18 @ 19:50 by Yony Levine MD) Anxiety Chronic pain Coronary artery disease GERD (gastroesophageal reflux disease) Hypercholesterolemia Hypertension - Surgical History Surgical History: Surgical History (Last Updated 02/26/18 @ 06:56 by Dax Jain MD, PhD) H/O hemorrhoidectomy H/O thumb surgery Hx of CABG - Family History Family History: Family History (Last Updated 02/26/18 @ 06:57 by Dax Jain MD, PhD) Father Myocardial infarct Nuclear sclerosis <Isaac Diego - Last Filed: 02/26/18 14:56> Medications and Allergies Active Medications: Active Medications Atenolol (Tenormin) 50 mg PO DAILY [facility] Last Admin: 02/26/18 08:40 Dose: Not Given Piperacillin/Tazobactam/Dextrose (Zosyn 3.375 Gm Premix) 50 mls @ 100 mls/hr IV.SIG Q8H [facility] Last Infusion: 02/26/18 09:09 Dose: Infused Lorazepam (Ativan Inj) 1 mg IV.PUSH Q4H PRN PRN Reason: anxiety, agitation Last Admin: 02/25/18 22:15 Dose: 1 mg Morphine Sulfate (Morphine Inj) 3 mg IV.PUSH Q3H PRN PRN Reason: PAIN SCALE 3 TO 10 Last Admin: 02/25/18 22:34 Dose: 3 mg Ondansetron HCl (Zofran Inj) 4 mg IV.PUSH Q6H PRN PRN Reason: nausea, vomiting Pantoprazole Sodium (Protonix) 40 mg PO DAILY [facility] Last Admin: 02/26/18 08:40 Dose: 40 mg Sodium Chloride (Ns Flush) 2 ml IV.FLUSH PRN PRN PRN Reason: FLUSH AFTER USING IV ACCESS <Diana Berry - Last Filed: 02/26/18 14:22> Active Medications: Active Medications Atenolol (Tenormin) 50 mg PO DAILY [facility] Last Admin: 02/26/18 08:40 Dose: Not Given Piperacillin/Tazobactam/Dextrose (Zosyn 3.375 Gm Premix) 50 mls @ 100 mls/hr IV.SIG Q8H [facility] Last Infusion: 02/26/18 09:09 Dose: Infused Lorazepam (Ativan Inj) 1 mg IV.PUSH Q4H PRN PRN Reason: anxiety, agitation Last Admin: 02/25/18 22:15 Dose: 1 mg Morphine Sulfate (Morphine Inj) 3 mg IV.PUSH Q3H PRN PRN Reason: PAIN SCALE 3 TO 10 Last Admin: 02/25/18 22:34 Dose: 3 mg Ondansetron HCl (Zofran Inj) 4 mg IV.PUSH Q6H PRN PRN Reason: nausea, vomiting Pantoprazole Sodium (Protonix) 40 mg PO DAILY [facility] Last Admin: 02/26/18 08:40 Dose: 40 mg Sodium Chloride (Ns Flush) 2 ml IV.FLUSH PRN PRN PRN Reason: FLUSH AFTER USING IV ACCESS <Isaac Diego - Last Filed: 02/26/18 14:56> Allergies Allergy/AdvReac Type Severity Reaction Status Date / Time No Known Allergies Allergy Unverified 02/25/18 19:41 Home Medications Medication Instructions Recorded Confirmed Type aspirin 81 mg PO DAILY 02/25/18 02/25/18 History atenolol 50 mg PO DAILY 02/25/18 02/25/18 History diazepam 10 mg PO BID 02/25/18 02/25/18 History ezetimibe 10 mg PO DAILY 02/25/18 02/25/18 History lisinopril-hydrochlorothiazide 1 tab PO DAILY 02/25/18 02/25/18 History pantoprazole 40 mg PO DAILY 02/25/18 02/25/18 History simvastatin 40 mg PO QPM 02/25/18 02/25/18 History tramadol 50 mg PO QID 02/25/18 02/25/18 History Exam Vital signs: Vital Signs 02/25/18 19:23 02/25/18 20:49 02/25/18 21:46 Temperature 98.1 F Pulse Rate 69 86 Respiratory Rate 18 15 15 Blood Pressure 164/76 H 135/77 Pulse Oximetry 99 96 02/25/18 21:47 02/26/18 00:33 02/26/18 01:00 Temperature 99.4 F Pulse Rate 99 H Respiratory Rate 15 Blood Pressure 111/64 Pulse Oximetry 99 98 96 02/26/18 01:20 02/26/18 04:00 02/26/18 08:00 Temperature 100.4 F H 97.4 F L 97.0 F L Pulse Rate 105 H 85 81 Respiratory Rate 20 20 18 Blood Pressure 98/57 L 103/54 L 82/44 L Pulse Oximetry 96 95 95 02/26/18 08:57 02/26/18 11:35 02/26/18 12:00 Temperature 98.3 F Pulse Rate 82 Respiratory Rate 20 Blood Pressure 88/54 L 96/57 L 106/56 L Pulse Oximetry 97 Intake & Output 02/25/18 02/26/18 02/26/18 18:59 06:59 18:59 Intake Total 1150 / 1150 1550 / 1550 Balance 1150 / 1150 1550 / 1550 Weight 82.2 kg Intake: IV 1150 / 1150 1550 / 1550 NS + KCl 20 mEq Inj 1,000 ML @ 1000 / 1000 100 mls/hr IV.CONT .Q10H [facility] Rx #:[id number] NS Inj 1,000 ML @ 500 mls/hr IV 1000 / 1000 .CONT .Q2H [facility] Rx#:[id number] INVanz Inj 1,000 MG In NS Inj 100 / 100 100 ML @ 200 mls/hr IV.SIG ONCE ONE Rx#:[id number] Zosyn 3.375 GM Premix 50 ML @ 50 / 50 50 / 50 100 mls/hr IV.SIG Q8H [facility] Rx#: [id number] NS Inj 500 ML @ 500 mls/hr IV. 500 / 500 SIG .Q1H ONE Rx#:[id number] Oral 0 / 0 Other: # Voids 1 Date of Last Bowel Movement 02/25/18 02/26/18 Weight On Admission 82.2 kg - Constitutional mild distress, average body habitus (Upper BMI) - Routine HEENT Exam Head: Present: normocephalic ENT: Present: mucous membranes dry - Routine Neck Exam Present: supple - Routine Respiratory Exam Present: accessory muscle use (No obvious shortness of breath rhonchi or wheezing) - Routine Cardiovascular Exam Present: S1, S2 - Routine Abdominal Exam Present: tenderness (Upper mid abdomen radiating to the right upper quadrant at times no obvious distention, soft bowel sounds throughout all 4 quadrants) - Routine Neurological Exam Present: alert (Answering simple questions appropriately) <Diana Berry - Last Filed: 02/26/18 14:22> Vital signs: Vital Signs 02/25/18 19:23 02/25/18 20:49 02/25/18 21:46 Temperature 98.1 F Pulse Rate 69 86 Respiratory Rate 18 15 15 Blood Pressure 164/76 H 135/77 Pulse Oximetry 99 96 02/25/18 21:47 02/26/18 00:33 02/26/18 01:00 Temperature 99.4 F Pulse Rate 99 H Respiratory Rate 15 Blood Pressure 111/64 Pulse Oximetry 99 98 96 02/26/18 01:20 02/26/18 04:00 02/26/18 08:00 Temperature 100.4 F H 97.4 F L 97.0 F L Pulse Rate 105 H 85 81 Respiratory Rate 20 20 18 Blood Pressure 98/57 L 103/54 L 82/44 L Pulse Oximetry 96 95 95 02/26/18 08:57 02/26/18 11:35 02/26/18 12:00 Temperature 98.3 F Pulse Rate 82 Respiratory Rate 20 Blood Pressure 88/54 L 96/57 L 106/56 L Pulse Oximetry 97 Intake & Output 02/25/18 02/26/18 02/26/18 18:59 06:59 18:59 Intake Total 1150 / 1150 1550 / 1550 Balance 1150 / 1150 1550 / 1550 Weight 82.2 kg Intake: IV 1150 / 1150 1550 / 1550 NS + KCl 20 mEq Inj 1,000 ML @ 1000 / 1000 100 mls/hr IV.CONT .Q10H [facility] Rx #:[id number] NS Inj 1,000 ML @ 500 mls/hr IV 1000 / 1000 .CONT .Q2H [facility] Rx#:[id number] INVanz Inj 1,000 MG In NS Inj 100 / 100 100 ML @ 200 mls/hr IV.SIG ONCE ONE Rx#:[id number] Zosyn 3.375 GM Premix 50 ML @ 50 / 50 50 / 50 100 mls/hr IV.SIG Q8H [facility] Rx#: [id number] NS Inj 500 ML @ 500 mls/hr IV. 500 / 500 SIG .Q1H ONE Rx#:[id number] Oral 0 / 0 Other: # Voids 1 Date of Last Bowel Movement 02/25/18 02/26/18 Weight On Admission 82.2 kg <Isaac Diego - Last Filed: 02/26/18 14:56> Results - Labs CBC & Chem 7: 02/26/18 06:15 02/26/18 06:15 Labs: Laboratory Results - last 24 hr 02/25/18 02/25/18 02/25/18 20:00 20:00 20:00 CBC w Diff Slide review pending WBC 6.1 RBC 5.07 Hgb 15.3 Hct 44.7 MCV 88.2 MCH 30.2 MCHC 34.3 RDW 12.4 Plt Count 173 MPV 7.8 Neut % (Auto) 89.5 H Lymph % (Auto) 3.7 L [place] % (Auto) 4.2 Eos % (Auto) 0.1 Baso % (Auto) 2.5 H Neut # (Auto) 5.4 Lymph # (Auto) 0.2 L [place] # (Auto) 0.3 Eos # (Auto) 0.0 Baso # (Auto) 0.2 WBC Differential . Diff Scan Auto diff confirmed Differential Comment . Sodium 128 L Potassium 3.5 Chloride 91 L Carbon Dioxide 24.9 Anion Gap 12 BUN 17 Creatinine 1.30 Estimated GFR 54 L Random Glucose 109 H Lactic Acid 1.0 Calcium 8.5 Prot Corrected Calcium Total Bilirubin 6.9 H AST 73 H ALT 107 H Alkaline Phosphatase 64 Total Protein 7.1 Albumin 3.8 Lipase 95 Urine Color Urine Clarity Urine pH Ur Specific [place] Urine Protein Urine Glucose (UA) Urine Ketones Urine Occult Blood Urine Nitrate Urine Bilirubin Urine Ictotest Urine Urobilinogen Ur Leukocyte Esterase Urine RBC Ur Squamous Epith Cells Micro UA Comment Ur Microscopic Review Urine Culture Comments 02/25/18 02/25/18 02/26/18 22:00 23:30 06:15 CBC w Diff Auto diff final WBC 9.0 RBC 4.75 Hgb 14.4 Hct 42.0 MCV 88.3 MCH 30.3 MCHC 34.3 RDW 13.0 Plt Count 160 MPV 7.6 Neut % (Auto) 94.6 H Lymph % (Auto) 2.8 L [place] % (Auto) 1.3 Eos % (Auto) 0.1 Baso % (Auto) 1.2 Neut # (Auto) 8.5 H Lymph # (Auto) 0.3 L [place] # (Auto) 0.1 Eos # (Auto) 0.0 Baso # (Auto) 0.1 WBC Differential . Diff Scan Differential Comment . Sodium 132 L Potassium 3.6 Chloride 97 L Carbon Dioxide 23.4 Anion Gap 12 BUN 15 Creatinine 1.20 Estimated GFR 59 L Random Glucose 100 Lactic Acid Calcium 7.4 L* D Prot Corrected Calcium 8.1 L Total Bilirubin 7.3 H AST 58 H ALT 79 H Alkaline Phosphatase 56 Total Protein 5.8 L D Albumin 2.9 L D Lipase Urine Color Yellow Urine Clarity Clear Urine pH 6.0 Ur Specific [place] 1.020 Urine Protein Trace Urine Glucose (UA) Negative Urine Ketones 40 H Urine Occult Blood Small H Urine Nitrate Negative Urine Bilirubin Moderate H Urine Ictotest Positive H Urine Urobilinogen 2.0 H Ur Leukocyte Esterase Negative Urine RBC 0-3 Ur Squamous Epith Cells 0-5 Micro UA Comment Culture not ind Ur Microscopic Review Microscopic reviewed Urine Culture Comments Culture not ind 02/26/18 06:15 CBC w Diff Auto diff final WBC 12.6 H RBC 4.36 L Hgb 13.6 Hct 39.6 MCV 90.8 MCH 31.1 MCHC 34.2 RDW 12.2 Plt Count 148 L MPV 7.9 Neut % (Auto) 88.8 H Lymph % (Auto) 4.4 [place] % (Auto) 6.6 Eos % (Auto) 0.1 Baso % (Auto) 0.1 Neut # (Auto) 11.2 H Lymph # (Auto) 0.6 [place] # (Auto) 0.8 Eos # (Auto) 0.0 Baso # (Auto) 0.0 WBC Differential . Diff Scan Differential Comment . Sodium Potassium Chloride Carbon Dioxide Anion Gap BUN Creatinine Estimated GFR Random Glucose Lactic Acid Calcium Prot Corrected Calcium Total Bilirubin AST ALT Alkaline Phosphatase Total Protein Albumin Lipase Urine Color Urine Clarity Urine pH Ur Specific [place] Urine Protein Urine Glucose (UA) Urine Ketones Urine Occult Blood Urine Nitrate Urine Bilirubin Urine Ictotest Urine Urobilinogen Ur Leukocyte Esterase Urine RBC Ur Squamous Epith Cells Micro UA Comment Ur Microscopic Review Urine Culture Comments - Imaging Impressions Abdomen/Pelvis CT 02/25/18 19:51 CONCLUSION: 1. 2 calcified gallstones. 2. Colonic diverticula without radiographic evidence of diverticulitis. Gallbladder Ultrasound 02/25/18 19:51 CONCLUSION: 1. 2 gallstones and probable sludge within the lumen. 2. Marked dilation of the common hepatic duct measuring up to 14 mm. No definite intraluminal defects seen. 3. Mild dilation of the central intrahepatic biliary ducts. 4. Mild hepatomegaly without focal lesion. Cholangiopancreatography MRI 02/26/18 00:00 CONCLUSION: 1. Gallbladder is distended with wall edema and contains at least 2 stones. Recent ultrasound indicated an absent sonographic Donaldson sign suggesting against acute cholecystitis. Therefore, these changes could also be seen with chronic cholecystitis. Nuclear medicine hepatobiliary examination is currently ordered and I can't evaluate for cystic duct obstruction. 2. Dilated common hepatic and common bile duct, as above. There is no intrahepatic bile duct dilatation in the distal common duct tapers to normal size near the ampulla. There is no common duct stone seen. The cause for the dilatation is not identified. <Diana Berry - Last Filed: 02/26/18 14:22> - Labs CBC & Chem 7: 02/26/18 06:15 02/26/18 06:15 Labs: Laboratory Results - last 24 hr 02/25/18 02/25/18 02/25/18 20:00 20:00 20:00 CBC w Diff Slide review pending WBC 6.1 RBC 5.07 Hgb 15.3 Hct 44.7 MCV 88.2 MCH 30.2 MCHC 34.3 RDW 12.4 Plt Count 173 MPV 7.8 Neut % (Auto) 89.5 H Lymph % (Auto) 3.7 L [place] % (Auto) 4.2 Eos % (Auto) 0.1 Baso % (Auto) 2.5 H Neut # (Auto) 5.4 Lymph # (Auto) 0.2 L [place] # (Auto) 0.3 Eos # (Auto) 0.0 Baso # (Auto) 0.2 WBC Differential . Diff Scan Auto diff confirmed Differential Comment . Sodium 128 L Potassium 3.5 Chloride 91 L Carbon Dioxide 24.9 Anion Gap 12 BUN 17 Creatinine 1.30 Estimated GFR 54 L Random Glucose 109 H Lactic Acid 1.0 Calcium 8.5 Prot Corrected Calcium Total Bilirubin 6.9 H AST 73 H ALT 107 H Alkaline Phosphatase 64 Total Protein 7.1 Albumin 3.8 Lipase 95 Urine Color Urine Clarity Urine pH Ur Specific [place] Urine Protein Urine Glucose (UA) Urine Ketones Urine Occult Blood Urine Nitrate Urine Bilirubin Urine Ictotest Urine Urobilinogen Ur Leukocyte Esterase Urine RBC Ur Squamous Epith Cells Micro UA Comment Ur Microscopic Review Urine Culture Comments 02/25/18 02/25/18 02/26/18 22:00 23:30 06:15 CBC w Diff Auto diff final WBC 9.0 RBC 4.75 Hgb 14.4 Hct 42.0 MCV 88.3 MCH 30.3 MCHC 34.3 RDW 13.0 Plt Count 160 MPV 7.6 Neut % (Auto) 94.6 H Lymph % (Auto) 2.8 L [place] % (Auto) 1.3 Eos % (Auto) 0.1 Baso % (Auto) 1.2 Neut # (Auto) 8.5 H Lymph # (Auto) 0.3 L [place] # (Auto) 0.1 Eos # (Auto) 0.0 Baso # (Auto) 0.1 WBC Differential . Diff Scan Differential Comment . Sodium 132 L Potassium 3.6 Chloride 97 L Carbon Dioxide 23.4 Anion Gap 12 BUN 15 Creatinine 1.20 Estimated GFR 59 L Random Glucose 100 Lactic Acid Calcium 7.4 L* D Prot Corrected Calcium 8.1 L Total Bilirubin 7.3 H AST 58 H ALT 79 H Alkaline Phosphatase 56 Total Protein 5.8 L D Albumin 2.9 L D Lipase Urine Color Yellow Urine Clarity Clear Urine pH 6.0 Ur Specific [place] 1.020 Urine Protein Trace Urine Glucose (UA) Negative Urine Ketones 40 H Urine Occult Blood Small H Urine Nitrate Negative Urine Bilirubin Moderate H Urine Ictotest Positive H Urine Urobilinogen 2.0 H Ur Leukocyte Esterase Negative Urine RBC 0-3 Ur Squamous Epith Cells 0-5 Micro UA Comment Culture not ind Ur Microscopic Review Microscopic reviewed Urine Culture Comments Culture not ind 02/26/18 06:15 CBC w Diff Auto diff final WBC 12.6 H RBC 4.36 L Hgb 13.6 Hct 39.6 MCV 90.8 MCH 31.1 MCHC 34.2 RDW 12.2 Plt Count 148 L MPV 7.9 Neut % (Auto) 88.8 H Lymph % (Auto) 4.4 L [place] % (Auto) 6.6 Eos % (Auto) 0.1 Baso % (Auto) 0.1 Neut # (Auto) 11.2 H Lymph # (Auto) 0.6 [place] # (Auto) 0.8 Eos # (Auto) 0.0 Baso # (Auto) 0.0 WBC Differential . Diff Scan Differential Comment . Sodium Potassium Chloride Carbon Dioxide Anion Gap BUN Creatinine Estimated GFR Random Glucose Lactic Acid Calcium Prot Corrected Calcium Total Bilirubin AST ALT Alkaline Phosphatase Total Protein Albumin Lipase Urine Color Urine Clarity Urine pH Ur Specific [place] Urine Protein Urine Glucose (UA) Urine Ketones Urine Occult Blood Urine Nitrate Urine Bilirubin Urine Ictotest Urine Urobilinogen Ur Leukocyte Esterase Urine RBC Ur Squamous Epith Cells Micro UA Comment Ur Microscopic Review Urine Culture Comments - Imaging Impressions Abdomen/Pelvis CT 02/25/18 19:51 CONCLUSION: 1. 2 calcified gallstones. 2. Colonic diverticula without radiographic evidence of diverticulitis. Gallbladder Ultrasound 02/25/18 19:51 CONCLUSION: 1. 2 gallstones and probable sludge within the lumen. 2. Marked dilation of the common hepatic duct measuring up to 14 mm. No definite intraluminal defects seen. 3. Mild dilation of the central intrahepatic biliary ducts. 4. Mild hepatomegaly without focal lesion. Cholangiopancreatography MRI 02/26/18 00:00 CONCLUSION: 1. Gallbladder is distended with wall edema and contains at least 2 stones. Recent ultrasound indicated an absent sonographic Donaldson sign suggesting against acute cholecystitis. Therefore, these changes could also be seen with chronic cholecystitis. Nuclear medicine hepatobiliary examination is currently ordered and I can't evaluate for cystic duct obstruction. 2. Dilated common hepatic and common bile duct, as above. There is no intrahepatic bile duct dilatation in the distal common duct tapers to normal size near the ampulla. There is no common duct stone seen. The cause for the dilatation is not identified. <Isaac Diego - Last Filed: 02/26/18 14:56> Assessment and Plan - Plan 73-year-old well-nourished male who was in his usual state of health up until approximately 4 days ago when he developed an upper mid abdominal pain while he was at a hunting count in [place]. Initial aggregating factor could have been being a sausage that patient ate the night his abdominal pain initiated and he had no real relieving factors. Patient notes he also had symptoms of some nausea and one episode of vomiting after he got to the [facility] emergency room after drinking a carbonated drink. Patient denies any obvious hematemesis or rectal bleeding he does note some chills off and on. For the last 2-3 days patient did note a decreased appetite and tried not to eat and drink as much to hopefully maintain the abdominal pain. Patient presented initially to the [facility] and was then transition to the [facility] to be followed and seen per gastroenterology for possible evaluation of ERCP. Labs show current hemoglobin 13.6, WBC count 12.6 mild leukocytosis, bilirubin 7.3, initially AST was 73 and is now 58, ALT 107 now 79, albumin decreased to 2.9. Patient usually has normal transient bowel movements with 1-2 a day but now states that stools have been loose brown for the past couple of days. Patient does note previous EGD and colonoscopy approximately 5 years ago and that was in hospital setting and does note a history of GERD which he takes PPI for at home. Gallbladder ultrasound performed on 02/25/2018 showed 2 gallstones and probable sludge within the lumen. Marked dilatation of the common hepatic duct measuring up to 14 mm no definite intraluminal defects seen. Mild dilatation of the central intrahepatic biliary ducts. Mild hepatomegaly without focal lesion. MRCP showed gallbladder distended with wall edema and at least 2 stones. Recent ultrasound indicated absent Donaldson sign suggesting against acute cholecystitis therefore these changes could be chronic. Common hepatic and common bile duct are dilated. There is no hepatic duct dilatation in the common bile duct tapers to normal size near the ampulla. There is no common duct stones seen. Note patient has history of CABG greater than 20 years ago and denies any blood thinners. Plan N.p.o. but patient may have a few ice chips for oral moistening Consent for ERCP in a.m. PPI Zosyn Nausea and pain meds per attending Supportive care Further recommendations to follow Monitor labs with special attention to bilirubin and LFTs Patient was seen per myself and Dr. Diego, note was written on his behalf <Diana Berry - Last Filed: 02/26/18 14:22> - Plan Seen and examined with [facility], feels tired but no pain. MRCP reviewed. HIDApending. ERCP planned for tomorrow. Repeat labs. Surgical consult nextweek. Thank you The exam, history, and the medical decision-making described in the above note were completed with the assistance of the mid-level provider. I reviewed and agree with the findings presented. I attest that I had a [id number] encounter with the patient on the same day, and personally performed and documented my assessment and findings in the medical record. <Isaac Diego - Last Filed: 02/26/18 14:56>
[2018-02-26] MEDS ORDERED: Chlorhexidine Gluconate 2% 1 Pack (2 Cloths) TOPICAL ONE (19:15)
[2018-02-26] MEDS ORDERED: Metoprolol Tartrate 25 MG Tablet PO ONE (19:15)
[2018-02-26] MEDS ORDERED: Sodium Chlor 0.9% Inj 500 ML IV.SIG SCH (20:00)
[2018-02-26] MEDS: Morphine Inj 4 MG/ML Vial IV.PUSH PRN (23:31)
[2018-02-27] MEDS: Piperacil/Tazo 3.375 GM Premix 50 ML IV.SIG SCH ×3 (01:29→18:26)
[2018-02-27 07:54] LABS: Baso % (Auto) 0.5 % (0.0-2.0); Eos # (Auto) 0.2 th/mm3 (0.0-0.4); Eos % (Auto) 2.9 % (0.0-4.0); Hematocrit 38.7 % (39.0-51.0); Hemoglobin 13.2 gm/dL (13.0-17.0); Lymph # (Auto) 0.9 th/mm3 (1.0-4.8); Lymph % (Auto) 13.8 % (9.0-44.0); Mean Corpuscular HGB Conc 34.2 % (32.0-36.0); Mean Corpuscular Hemoglobin 30.9 pg (27.0-34.0); Mean Corpuscular Volume 90.5 fL (80.0-100.0); Mean Platelet Volume 7.8 fL (7.0-11.0); Mono # (Auto) 0.9 th/mm3 (0.0-0.9); Mono % (Auto) 13.7 % (0.0-8.0); Neut # (Auto) 4.3 th/mm3 (1.8-7.7); Neut % (Auto) 69.1 % (16.0-70.0); Platelet Count 133 th/mm3 (150-450); Red Blood Count 4.28 mil/mm3 (4.50-5.90); Red Cell Distribution Width 13.4 % (11.6-17.2); White Blood Count 6.2 th/mm3 (4.0-11.0)
[2018-02-27 08:13] LABS: Alanine Aminotransferase 62 U/L (12-78); Albumin 2.9 g/dL (3.4-5.0); Anion Gap 12 meq/L (5-15); Aspartate Aminotransferase 47 U/L (15-37); Blood Urea Nitrogen 8 mg/dL (7-18); Calcium 8.2 mg/dL (8.5-10.1); Carbon Dioxide 23.1 meq/L (21.0-32.0); Chloride 102 meq/L (98-107); Glomerular Filtration Rate 73 mL/min (>89); Glucose,Random 81 mg/dL (74-106); Potassium 3.5 meq/L (3.5-5.1); Sodium 137 meq/L (136-145)
[2018-02-27 08:14] LABS: Alkaline Phosphatase 76 U/L (45-117); Total Protein 5.9 g/dL (6.4-8.2)
[2018-02-27] MEDS: Atenolol 50 MG Tablet PO SCH (09:20)
--- NOTE | 2018-02-27 10:11 | P.PNIM ---
Subjective Interval history: Follow up: Choledocholithiasis with obstruction Patient reports continued pain RUQ Physical Exam Vital signs: Vital Signs 02/26/18 11:35 02/26/18 12:00 02/26/18 16:00 Temperature 98.3 F 98 F Pulse Rate 82 74 Respiratory Rate 20 20 Blood Pressure 96/57 L 106/56 L 96/52 L Pulse Oximetry 97 95 02/26/18 16:51 02/26/18 20:00 02/26/18 20:30 Temperature 98.2 F Pulse Rate 78 76 Respiratory Rate 18 Blood Pressure 123/58 L Pulse Oximetry 98 98 02/26/18 21:33 02/27/18 00:00 02/27/18 04:00 Temperature 100.1 F H 98.8 F Pulse Rate 86 87 Respiratory Rate 18 18 18 Blood Pressure 131/64 125/68 Pulse Oximetry 95 95 02/27/18 06:06 02/27/18 08:00 Temperature 98.2 F Pulse Rate 94 H Respiratory Rate 16 Blood Pressure 136/70 Pulse Oximetry 97 96 Intake & Output 02/26/18 02/27/18 02/27/18 18:59 06:59 18:59 Intake Total 2320 / 2320 492 / 492 Balance 2320 / 2320 492 / 492 Intake: IV 1600 / 1600 50 / 50 NS + KCl 20 mEq Inj 1,000 ML @ 1000 / 1000 100 mls/hr IV.CONT .Q10H BLAKE Rx #:[id number] Zosyn 3.375 GM Premix 50 ML @ 100 / 100 50 / 50 100 mls/hr IV.SIG Q8H BLAKE Rx#: [id number] NS Inj 500 ML @ 500 mls/hr IV. 500 / 500 SIG .Q1H ONE Rx#:[id number] Oral 720 / 720 442 / 442 Other: # Voids 2 1 Date of Last Bowel Movement 02/26/18 02/26/18 Narrative: GENERAL: This is a well-nourished, well-developed patient, in no apparent distress. CARDIOVASCULAR: Regular rate and rhythm RESPIRATORY: Clear to auscultation. Breath sounds equal bilaterally. GASTROINTESTINAL: Abdomen soft, tender RUQ, nondistended. Normal active bowel sounds MUSCULOSKELETAL: Extremities without clubbing, cyanosis, or edema. NEURO: Alert & Oriented x4 to person, place, time, situation. Moves all ext x4 Results - Labs CBC & Chem 7: 03/01/18 06:45 03/01/18 06:45 Laboratory Results - last 24 hr 02/27/18 02/27/18 07:14 07:14 WBC 6.2 RBC 4.28 L Hgb 13.2 Hct 38.7 L MCV 90.5 MCH 30.9 MCHC 34.2 RDW 13.4 Plt Count 133 L MPV 7.8 Neut % (Auto) 69.1 Lymph % (Auto) 13.8 [place] % (Auto) 13.7 H Eos % (Auto) 2.9 Baso % (Auto) 0.5 Neut # (Auto) 4.3 Lymph # (Auto) 0.9 L [place] # (Auto) 0.9 Eos # (Auto) 0.2 Baso # (Auto) 0.0 WBC Differential . Differential Comment Auto diff final Sodium 137 Potassium 3.5 Chloride 102 Carbon Dioxide 23.1 Anion Gap 12 BUN 8 Creatinine 1.00 Estimated GFR 73 L Random Glucose 81 Calcium 8.2 L D Total Bilirubin 6.6 H AST 47 H ALT 62 Alkaline Phosphatase 76 Total Protein 5.9 L Albumin 2.9 L Microbiology 02/25/18 23:45 Blood - Peripheral Aerobic Blood Culture - Preliminary No growth in 1 day 02/25/18 23:45 Blood - Peripheral Anaerobic Blood Culture - Preliminary No growth in 1 day 02/25/18 23:30 Blood - Peripheral Aerobic Blood Culture - Preliminary No growth in 1 day 02/25/18 23:30 Blood - Peripheral Anaerobic Blood Culture - Preliminary No growth in 1 day - Imaging Impressions Cholangiopancreatography MRI 02/26/18 00:00 CONCLUSION: 1. Gallbladder is distended with wall edema and contains at least 2 stones. Recent ultrasound indicated an absent sonographic Donaldson sign suggesting against acute cholecystitis. Therefore, these changes could also be seen with chronic cholecystitis. Nuclear medicine hepatobiliary examination is currently ordered and I can't evaluate for cystic duct obstruction. 2. Dilated common hepatic and common bile duct, as above. There is no intrahepatic bile duct dilatation in the distal common duct tapers to normal size near the ampulla. There is no common duct stone seen. The cause for the dilatation is not identified. Assessment and Plan - Assessment (1) Choledocholithiasis with obstruction Code(s): K80.51 - Calculus of bile duct without cholangitis or cholecystitis with obstruction Status: Acute Plan: Choledocholithiasis with obstruction Abdomen/Pelvis reviewed and reveals: 1. 2 calcified gallstones. 2. Colonic diverticula without radiographic evidence of diverticulitis. Gallbladder Ultrasound reviewed and reveals: 1. 2 gallstones and probable sludge within the lumen. 2. Marked dilation of the common hepatic duct measuring up to 14 mm. No definite intraluminal defects seen. 3. Mild dilation of the central intrahepatic biliary ducts. 4. Mild hepatomegaly without focal lesion. Cholangiopancreatography MRI reviewed and reveals: 1. Gallbladder is distended with wall edema and contains at least 2 stones. Recent ultrasound indicated an absent sonographic Donaldson sign suggesting against acute cholecystitis. Therefore, these changes could also be seen with chronic cholecystitis. Nuclear medicine hepatobiliary examination is currently ordered and I can't evaluate for cystic duct obstruction. 2. Dilated common hepatic and common bile duct, as above. There is no intrahepatic bile duct dilatation in the distal common duct tapers to normal size near the ampulla. There is no common duct stone seen. The cause for the dilatation is not identified. NPO Patient transferred from to [facility] for ERCP today GI following Continue IV fluids pain medication antiemetic Zosyn WBC on admission 12.6 -> 6.2 (02/27) total bilirubin 7.3 -> 6.6 (02/27) AST 58 -> 47 (02/27) ALT 79 -> 62 (02/27) Alk phos 76 Hypertension Blood pressure a bit low recently. Will provide parameters for holding medication. Hyperlipidemia Hold home statin due to elevated LFTs GERD (gastroesophageal reflux disease) Continue PPI. The exam, history, and the medical decision-making described in the above note were completed with the assistance of the mid-level provider. I reviewed and agree with the findings presented. I attest that I had a [id number] encounter with the patient on the same day, and personally performed and documented my assessment and findings in the medical record. going for ercp today. cont abx and supportive care. discussed with pt/. The exam, history, and the medical decision-making described in the above note were completed with the assistance of the mid-level provider. I reviewed and agree with the findings presented. I attest that I had a [id number] encounter with the patient on the same day, and personally performed and documented my assessment and findings in the medical record. (1) Choledocholithiasis with obstruction Qualifiers: Cholecystitis presence: without cholecystitis Qualified Code(s): K80.51 - Calculus of bile duct without cholangitis or cholecystitis with obstruction
[2018-02-27] MEDS ORDERED: Succinylcholine Inj 100 MG/5 ML Syringe IV.PUSH ONE (14:54)
[2018-02-27] MEDS ORDERED: Lidocaine PF 1% Inj 5 ML Syringe OTHER ONE (14:54)
--- NOTE | 2018-02-27 16:32 | ECG ---
Date Performed: 02/26/2018 Time Performed: 20:52:50 PTAGE: 73 years EKG: Sinus rhythm WITH FIRST DEGREE AV BLOCK ABNORMAL ECG PREVIOUS TRACING : 06/30/1997 17.30 Since the previous tracing, no significant change noted DOCTOR: Carrie Concepcion Interpretating Date/Time 02/27/2018 16:30:52
[2018-02-27] MEDS ORDERED: Iohexol Inj 350 MG/ML 100 ML Bottle (for RAD Diag) IVCONTRAST ONE (16:39)
[2018-02-27] MEDS ORDERED: fentaNYL Citrate Inj 100 MCG/2 ML Ampul ONE (17:10)
--- NOTE | 2018-02-27 17:19 | P.PCN ---
Date of procedure: 02/27/18 Pre-op diagnosis: Elevated liver function tests, choledocholithiasis Procedure: PROCEDURE PERFORMED [] PROCEDURE: The procedure, risks and benefits were discussed with Patient/POA and informed consent was obtained. Anesthesia sedated Patient with Diprivan patient was intubated and underwent general anesthesia in a supine position. ERCP: Patient was placed in a prone position. The Pentax videoscope was introduced through the oropharynx and advanced to the second portion of the duodenum where the ampula was identified. FINDINGS: The ampulla was noted to be adjacent to a small duodenal diverticulum initial cannulation of the common bile duct was somewhat difficult a needle-knife sphincterotomy was performed and subsequently I was able to obtain easy cannulation of the common bile duct it was noted to be dilated with filling defects in the distal portion a generous sphincterotomy was performed and then using the 12 mm balloon we were able to extract 2 stones from the common bile duct thereafter the bile duct was noted to be free of any filling defects the intrahepatics were noted to be unremarkable with normal limits no gallbladder was seen ESTIMATED BLOOD LOSS: None SPECIMENS REMOVED: None COMPLICATIONS: None IMPRESSION: Choledocholithiasis Duodenal diverticulum PLAN: We will start with a clear liquid diet for today and advance as tolerated Monitor labs Further recommendations she will depend on his hospital course Anesthesia: GURWINDER Surgeon: Ethan Bridges Condition: stable Disposition: floor
--- NOTE | 2018-02-27 17:59 | FL ---
EXAM DATE: 02/27/2018 12:00 AM EDT AGE/SEX: 73 years / Male INDICATIONS: Abdominal pain, possible obstruction. CLINICAL DATA: This is the patient's initial encounter. Patient reports that signs and symptoms have been present for 1 day and indicates a pain score of Nonresponsive. MEDICAL/SURGICAL HISTORY: Non-responsive. Non-responsive. COMPARISON: HPO, MRCP W/O CONTRAST, 02/26/2018. . FINDINGS: An ERCP was performed by the ordering physician. The images demonstrate mildly distended common bile duct. A wire and balloon is passed across the ampullary region. No filling defects are demonstrated. CONCLUSION: ERCP with a distended common bile duct and apparent balloon dilatation distally. Electronically signed by: Manny Crabtree MD 02/27/2018 5:57 PM EDT
[2018-02-27] MEDS: Morphine Inj 4 MG/ML Vial IV.PUSH PRN (20:02)
[2018-02-28] MEDS: Piperacil/Tazo 3.375 GM Premix 50 ML IV.SIG SCH ×3 (00:06→17:10)
[2018-02-28 06:47] LABS: Hemoglobin 14.6 gm/dL (13.0-17.0); Mean Corpuscular Hemoglobin 30.8 pg (27.0-34.0); Mean Corpuscular Volume 90.7 fL (80.0-100.0); Mean Platelet Volume 7.9 fL (7.0-11.0); Platelet Count 150 th/mm3 (150-450); Red Blood Count 4.74 mil/mm3 (4.50-5.90); Red Cell Distribution Width 13.4 % (11.6-17.2); White Blood Count 5.8 th/mm3 (4.0-11.0)
[2018-02-28 07:35] LABS: Anion Gap 8 meq/L (5-15); Aspartate Aminotransferase 70 U/L (15-37); Blood Urea Nitrogen 8 mg/dL (7-18); Calcium 8.6 mg/dL (8.5-10.1); Carbon Dioxide 27.7 meq/L (21.0-32.0); Chloride 101 meq/L (98-107); Glomerular Filtration Rate 66 mL/min (>89); Glucose,Random 100 mg/dL (74-106); Potassium 3.7 meq/L (3.5-5.1); Sodium 137 meq/L (136-145)
[2018-02-28 07:39] LABS: Alanine Aminotransferase 73 U/L (12-78); Alkaline Phosphatase 128 U/L (45-117); Total Protein 6.4 g/dL (6.4-8.2)
[2018-02-28] MEDS: Atenolol 50 MG Tablet PO SCH (09:10)
--- NOTE | 2018-02-28 09:10 | P.PNIM ---
Subjective Interval history: Follow up: Choledocholithiasis with obstruction S/P ERCP with two stones removed from CBD 02/28 Patient reports, "It sore," referring to his abdomen patient did not tolerated clear liquid diet last night - had bloating, discomfort and nausea Physical Exam Vital signs: Vital Signs 02/27/18 10:00 02/27/18 12:00 02/27/18 13:35 Temperature 97.8 F Pulse Rate 88 84 82 Respiratory Rate 14 Blood Pressure 119/63 Pulse Oximetry 96 02/27/18 17:03 02/27/18 17:15 02/27/18 17:40 Temperature 98.3 F 98.3 F Pulse Rate 80 80 76 Respiratory Rate 14 17 Blood Pressure 169/79 H 147/76 H 140/64 Pulse Oximetry 94 L 96 96 02/27/18 19:49 02/27/18 20:00 02/28/18 00:00 Temperature 97.3 F L 99.3 F Pulse Rate 75 92 H Respiratory Rate 18 18 Blood Pressure 158/83 H 121/58 L Pulse Oximetry 96 97 94 L 02/28/18 04:00 02/28/18 04:27 02/28/18 08:00 Temperature 98 F 99.2 F Pulse Rate 78 77 77 Respiratory Rate 18 20 Blood Pressure 125/64 134/70 Pulse Oximetry 96 96 02/28/18 08:41 Temperature Pulse Rate Respiratory Rate Blood Pressure 142/67 H Pulse Oximetry Intake & Output 02/27/18 02/28/18 02/28/18 18:59 06:59 18:59 Intake Total 750 / 750 100 / 100 Balance 750 / 750 100 / 100 Intake: IV 50 / 50 100 / 100 Zosyn 3.375 GM Premix 50 ML @ 50 / 50 100 / 100 100 mls/hr IV.SIG Q8H BLAKE Rx#: [id number] Anesthesia Amount 700 / 700 Other: # Voids 3 Date of Last Bowel Movement 02/26/18 Narrative: GENERAL: This is a well-nourished, well-developed patient, in no apparent distress. CARDIOVASCULAR: Regular rate and rhythm RESPIRATORY: Clear to auscultation. Breath sounds equal bilaterally. GASTROINTESTINAL: Abdomen soft, mild tenderness, nondistended. Normal active bowel sounds MUSCULOSKELETAL: Extremities without clubbing, cyanosis, or edema. NEURO: Alert & Oriented x4 to person, place, time, situation. Moves all ext x4 Results - Labs CBC & Chem 7: 02/28/18 05:37 02/28/18 05:37 Laboratory Results - last 24 hr 02/28/18 02/28/18 05:37 05:37 WBC 5.8 RBC 4.74 Hgb 14.6 Hct 43.0 MCV 90.7 MCH 30.8 MCHC 34.0 RDW 13.4 Plt Count 150 MPV 7.9 Sodium 137 Potassium 3.7 Chloride 101 Carbon Dioxide 27.7 Anion Gap 8 BUN 8 Creatinine 1.09 Estimated GFR 66 L Random Glucose 100 Calcium 8.6 Total Bilirubin 6.4 H AST 70 H ALT 73 Alkaline Phosphatase 128 H Total Protein 6.4 Albumin 3.0 L Microbiology 02/25/18 23:45 Blood - Peripheral Aerobic Blood Culture - Preliminary No growth in 2 days 02/25/18 23:45 Blood - Peripheral Anaerobic Blood Culture - Preliminary No growth in 2 days 02/25/18 23:30 Blood - Peripheral Aerobic Blood Culture - Preliminary No growth in 2 days 02/25/18 23:30 Blood - Peripheral Anaerobic Blood Culture - Preliminary No growth in 2 days - Imaging Impressions GI Procedure 02/27/18 00:00 CONCLUSION: ERCP with a distended common bile duct and apparent balloon dilatation distally. Assessment and Plan - Assessment (1) Choledocholithiasis with obstruction Code(s): K80.51 - Calculus of bile duct without cholangitis or cholecystitis with obstruction Status: Acute Plan: Choledocholithiasis with obstruction Abdomen/Pelvis reviewed and reveals: 1. 2 calcified gallstones. 2. Colonic diverticula without radiographic evidence of diverticulitis. Gallbladder Ultrasound reviewed and reveals: 1. 2 gallstones and probable sludge within the lumen. 2. Marked dilation of the common hepatic duct measuring up to 14 mm. No definite intraluminal defects seen. 3. Mild dilation of the central intrahepatic biliary ducts. 4. Mild hepatomegaly without focal lesion. Cholangiopancreatography MRI reviewed and reveals: 1. Gallbladder is distended with wall edema and contains at least 2 stones. Recent ultrasound indicated an absent sonographic Donaldson sign suggesting against acute cholecystitis. Therefore, these changes could also be seen with chronic cholecystitis. Nuclear medicine hepatobiliary examination is currently ordered and I can't evaluate for cystic duct obstruction. 2. Dilated common hepatic and common bile duct, as above. There is no intrahepatic bile duct dilatation in the distal common duct tapers to normal size near the ampulla. There is no common duct stone seen. The cause for the dilatation is not identified. Patient transferred from to [facility] for ERCP GI following 02/27/[address] Crow: per ERCP report: The ampulla was noted to be adjacent to a small duodenal diverticulum initial cannulation of the common bile duct was somewhat difficult a needle-knife sphincterotomy was performed and subsequently I was able to obtain easy cannulation of the common bile duct it was noted to be dilated with filling defects in the distal portion a generous sphincterotomy was performed and then using the 12 mm balloon we were able to extract 2 stones from the common bile duct thereafter the bile duct was noted to be free of any filling defects the intrahepatics were noted to be unremarkable with normal limits no gallbladder was seen Clear liquid diet plan to advance as patient tolerates Continue IV fluids pain medication antiemetic Zosyn WBC on admission 12.6 -> 6.2 (02/27) -> 5.8 (02/28) total bilirubin 7.3 -> 6.6 (02/27) -> 6.4 (02/28) AST 58 -> 47 (02/27)-> 70 (02/28) ALT 79 -> 62 (02/27) -> 73 (02/28) Alk phos 76 -> 128 (02/28) Hypertension Continue patient's home Atenolol 50 mg PO daily and Lisinopril/HCTZ 20-12.5 daily with hold parameters Hyperlipidemia Hold home statin due to elevated LFTs GERD (gastroesophageal reflux disease) Continue PPI. (1) Choledocholithiasis with obstruction Qualifiers: Cholecystitis presence: without cholecystitis Qualified Code(s): K80.51 - Calculus of bile duct without cholangitis or cholecystitis with obstruction
[2018-02-28] MEDS: Docusate Sodium 100 MG Capsule PO SCH ×2 (11:01→20:09)
--- NOTE | 2018-02-28 11:41 | P.PNGI ---
Subjective Interval history: Patient is up ambulating in the room still has some generalized weakness and some right upper quadrant soreness but appears to be gradually improving discussed with him the findings of ERCP <JamalDiana M - Last Filed: 02/28/18 12:12> Physical Exam Vital signs: Vital Signs 02/27/18 12:00 02/27/18 13:35 02/27/18 17:03 Temperature 97.8 F 98.3 F Pulse Rate 84 82 80 Respiratory Rate 14 Blood Pressure 119/63 169/79 H Pulse Oximetry 96 94 L 02/27/18 17:15 02/27/18 17:40 02/27/18 19:49 Temperature 98.3 F Pulse Rate 80 76 Respiratory Rate 14 17 Blood Pressure 147/76 H 140/64 Pulse Oximetry 96 96 96 02/27/18 20:00 02/28/18 00:00 02/28/18 04:00 Temperature 97.3 F L 99.3 F 98 F Pulse Rate 75 92 H 78 Respiratory Rate 18 18 18 Blood Pressure 158/83 H 121/58 L 125/64 Pulse Oximetry 97 94 L 96 02/28/18 04:27 02/28/18 08:00 02/28/18 08:41 Temperature 99.2 F Pulse Rate 77 77 Respiratory Rate 20 Blood Pressure 134/70 142/67 H Pulse Oximetry 96 02/28/18 09:41 Temperature Pulse Rate 69 Respiratory Rate Blood Pressure Pulse Oximetry Intake & Output 02/27/18 02/28/18 02/28/18 18:59 06:59 18:59 Intake Total 750 / 750 100 / 100 50 / 50 Balance 750 / 750 100 / 100 50 / 50 Intake: IV 50 / 50 100 / 100 50 / 50 Zosyn 3.375 GM Premix 50 ML @ 50 / 50 100 / 100 50 / 50 100 mls/hr IV.SIG Q8H BLAKE Rx#: [id number] Anesthesia Amount 700 / 700 Other: # Voids 3 Date of Last Bowel Movement 02/26/18 03/01/18 # Bowel Movements 1 - Constitutional no acute distress, obese, cooperative - Routine HEENT Exam Head: Present: normocephalic ENT: Present: mucous membranes moist - Routine Neck Exam Present: supple - Routine Respiratory Exam Present: accessory muscle use (No obvious shortness of breath) - Routine Cardiovascular Exam Present: S1, S2 - Routine Abdominal Exam Present: tenderness (Right upper quadrant mild discomfort often known and with light palpation, ) <JamalDiana M - Last Filed: 02/28/18 12:12> Vital signs: Vital Signs 02/27/18 19:49 02/27/18 20:00 02/28/18 00:00 Temperature 97.3 F L 99.3 F Pulse Rate 75 92 H Respiratory Rate 18 18 Blood Pressure 158/83 H 121/58 L Pulse Oximetry 96 97 94 L 02/28/18 04:00 02/28/18 04:27 02/28/18 08:00 Temperature 98 F 99.2 F Pulse Rate 78 77 77 Respiratory Rate 18 20 Blood Pressure 125/64 134/70 Pulse Oximetry 96 96 02/28/18 08:41 02/28/18 09:41 02/28/18 12:00 Temperature 98.1 F Pulse Rate 69 67 Respiratory Rate 20 Blood Pressure 142/67 H 141/72 H Pulse Oximetry 96 02/28/18 12:39 02/28/18 15:49 02/28/18 16:00 Temperature 97.3 F L Pulse Rate 70 65 Respiratory Rate 20 Blood Pressure 160/73 H Pulse Oximetry 94 L 97 Intake & Output 02/28/18 02/28/18 03/01/18 06:59 18:59 06:59 Intake Total 100 / 100 100 / 100 820 / 820 Output Total 7 / 7 5 / 5 Balance 100 / 100 93 / 93 815 / 815 Intake: IV 100 / 100 100 / 100 Zosyn 3.375 GM Premix 50 ML @ 100 / 100 100 / 100 100 mls/hr IV.SIG Q8H BLAKE Rx#: [id number] Oral 820 / 820 Output: Urine 4 / 4 5 / 5 Stool 3 / 3 Other: # Voids 3 Date of Last Bowel Movement 02/26/18 02/28/18 # Bowel Movements 1 <Ethan Bridges - Last Filed: 02/28/18 19:30> Results - Labs CBC & Chem 7: 02/28/18 05:37 02/28/18 05:37 Laboratory Results - last 24 hr 02/28/18 02/28/18 05:37 05:37 WBC 5.8 RBC 4.74 Hgb 14.6 Hct 43.0 MCV 90.7 MCH 30.8 MCHC 34.0 RDW 13.4 Plt Count 150 MPV 7.9 Sodium 137 Potassium 3.7 Chloride 101 Carbon Dioxide 27.7 Anion Gap 8 BUN 8 Creatinine 1.09 Estimated GFR 66 L Random Glucose 100 Calcium 8.6 Total Bilirubin 6.4 H AST 70 H ALT 73 Alkaline Phosphatase 128 H Total Protein 6.4 Albumin 3.0 L Microbiology 02/25/18 23:45 Blood - Peripheral Aerobic Blood Culture - Preliminary No growth in 3 days 02/25/18 23:45 Blood - Peripheral Anaerobic Blood Culture - Preliminary No growth in 3 days 02/25/18 23:30 Blood - Peripheral Aerobic Blood Culture - Preliminary No growth in 3 days 02/25/18 23:30 Blood - Peripheral Anaerobic Blood Culture - Preliminary No growth in 3 days - Imaging Impressions GI Procedure 02/27/18 00:00 CONCLUSION: ERCP with a distended common bile duct and apparent balloon dilatation distally. <Diana Berry - Last Filed: 02/28/18 12:12> - Labs CBC & Chem 7: 02/28/18 05:37 02/28/18 05:37 Laboratory Results - last 24 hr 02/28/18 02/28/18 05:37 05:37 WBC 5.8 RBC 4.74 Hgb 14.6 Hct 43.0 MCV 90.7 MCH 30.8 MCHC 34.0 RDW 13.4 Plt Count 150 MPV 7.9 Sodium 137 Potassium 3.7 Chloride 101 Carbon Dioxide 27.7 Anion Gap 8 BUN 8 Creatinine 1.09 Estimated GFR 66 L Random Glucose 100 Calcium 8.6 Total Bilirubin 6.4 H AST 70 H ALT 73 Alkaline Phosphatase 128 H Total Protein 6.4 Albumin 3.0 L Microbiology 02/25/18 23:45 Blood - Peripheral Aerobic Blood Culture - Preliminary No growth in 3 days 02/25/18 23:45 Blood - Peripheral Anaerobic Blood Culture - Preliminary No growth in 3 days 02/25/18 23:30 Blood - Peripheral Aerobic Blood Culture - Preliminary No growth in 3 days 02/25/18 23:30 Blood - Peripheral Anaerobic Blood Culture - Preliminary No growth in 3 days <Ethan Bridges - Last Filed: 02/28/18 19:30> Assessment and Plan - Plan 02/28/2018 patient is status post ERCP performed on 02/27/[address] Bridges. Include choledocholithiasis and duodenal diverticulum generous sphincterotomy was performed using a 12 mm balloon. Extraction of 2 stones from the common bile duct without any further filling defects noted. Current labs on 02/28/2018 showed mild decrease in bilirubin 6.4, mild increase in AST 70, ALT 73 and alkaline phosphatase 128. Is now on clear liquid diet will consider increasing diet as tolerated. Hemoglobin 14.6 without any obvious bleeding. Patient drank clear liquids rapidly last night and a fairly large amount and did note some nausea but no vomiting. Encourage patient to eat very slowly and we will trial full liquids. If patient has increased abdominal pain or vomiting will go back to clear liquids. Possibly still need to consider surgical consult this week if patient's right upper quadrant or abdominal pain persist. Plan Diet full liquids but monitor for any acute nausea or vomiting Monitor labs with special attention to bilirubin and LFTs and alkaline phosphatase Protonix 40 mg daily Zofran as needed Bowel regimen Supportive care Patient was seen per myself and Dr. Bridges, note was written on his behalf <Diana Berry M - Last Filed: 02/28/18 12:12> - Plan Patient seen and examined Agree with above Continue with current supportive care Monitor labs Sometimes ampullary edema may delay resolution of LFTs we will continue to monitor for now If it is noted to be declining tomorrow patient may be discharged from a GI standpoint <Ethan Bridges - Last Filed: 02/28/18 19:30>
[2018-02-28] MEDS: Morphine Inj 4 MG/ML Vial IV.PUSH PRN (22:39)
[2018-03-01 00:11] VITALS: RESP 18
[2018-03-01] MEDS: Piperacil/Tazo 3.375 GM Premix 50 ML IV.SIG SCH ×2 (00:24→09:42)
[2018-03-01 05:35] VITALS: TEMP 97.8
[2018-03-01 07:36] LABS: Baso # (Auto) 0.1 th/mm3 (0.0-0.2); Eos # (Auto) 0.2 th/mm3 (0.0-0.4); Eos % (Auto) 4.7 % (0.0-4.0); Hemoglobin 12.7 gm/dL (13.0-17.0); Lymph % (Auto) 18.5 % (9.0-44.0); Mean Corpuscular HGB Conc 34.4 % (32.0-36.0); Mean Corpuscular Hemoglobin 30.8 pg (27.0-34.0); Mean Corpuscular Volume 89.7 fL (80.0-100.0); Mean Platelet Volume 7.4 fL (7.0-11.0); Mono # (Auto) 0.6 th/mm3 (0.0-0.9); Mono % (Auto) 10.8 % (0.0-8.0); Neut # (Auto) 3.4 th/mm3 (1.8-7.7); Platelet Count 141 th/mm3 (150-450); Red Blood Count 4.13 mil/mm3 (4.50-5.90); Red Cell Distribution Width 13.5 % (11.6-17.2); White Blood Count 5.2 th/mm3 (4.0-11.0)
[2018-03-01 07:48] LABS: Alanine Aminotransferase 62 U/L (12-78); Albumin 2.6 g/dL (3.4-5.0); Anion Gap 7 meq/L (5-15); Aspartate Aminotransferase 39 U/L (15-37); Blood Urea Nitrogen 5 mg/dL (7-18); Calcium 8.1 mg/dL (8.5-10.1); Chloride 105 meq/L (98-107); Glomerular Filtration Rate 83 mL/min (>89); Glucose,Random 101 mg/dL (74-106); Lipase 305 U/L (73-393); Potassium 3.6 meq/L (3.5-5.1); Sodium 141 meq/L (136-145)
[2018-03-01 07:52] LABS: Alkaline Phosphatase 119 U/L (45-117); Total Protein 5.7 g/dL (6.4-8.2)
[2018-03-01] MEDS ORDERED: Lisinopril 20 MG Tablet PO SCH (09:00)
[2018-03-01] MEDS ORDERED: Non-Formulary Drug (Lisinopril-Hydrochlorothiazide [Lisinopril-Hydrochlorothiazide] 1 TAB) PO SCH (09:00)
[2018-03-01 09:09] VITALS: O2SAT 95
[2018-03-01] MEDS ORDERED: Sodium Chloride 0.9% 2 ML Flush PRN IV.FLUSH (09:18)
[2018-03-01] MEDS: Atenolol 50 MG Tablet PO SCH (09:44)
[2018-03-01] MEDS: Docusate Sodium 100 MG Capsule PO SCH (09:45)
--- NOTE | 2018-03-01 09:53 | P.PNIM ---
Physical Exam Vital signs: Vital Signs 02/28/18 09:41 02/28/18 12:00 02/28/18 12:39 Temperature 98.1 F Pulse Rate 69 67 70 Respiratory Rate 20 Blood Pressure 141/72 H Pulse Oximetry 96 02/28/18 15:49 02/28/18 16:00 02/28/18 19:35 Temperature 97.3 F L 98.7 F Pulse Rate 65 76 Respiratory Rate 20 16 Blood Pressure 160/73 H 134/67 Pulse Oximetry 94 L 97 97 03/01/18 00:00 03/01/18 04:00 03/01/18 06:13 Temperature 98.1 F 97.8 F Pulse Rate 68 70 Respiratory Rate 18 18 18 Blood Pressure 121/64 167/82 H Pulse Oximetry 95 96 03/01/18 08:00 Temperature 97.8 F Pulse Rate 69 Respiratory Rate 18 Blood Pressure 170/74 H Pulse Oximetry 95 Intake & Output 02/28/18 03/01/18 03/01/18 18:59 06:59 18:59 Intake Total 100 / 100 1320 / 1320 Output Total 205 / 205 Balance 93 / 93 1115 / 1115 Weight 82.1 kg Intake: IV 100 / 100 50 / 50 Zosyn 3.375 GM Premix 50 ML @ 100 / 100 50 / 50 100 mls/hr IV.SIG Q8H BLAKE Rx#: [id number] Oral 1270 / 1270 Output: Urine / 205 Stool 3 / 3 Other: # Voids 3 Date of Last Bowel Movement 02/28/18 02/28/18 # Bowel Movements 1 Narrative: GENERAL: This is a well-nourished, well-developed patient, in no apparent distress. CARDIO: Regular RESP: CTA bilaterally. ABD: +BS, soft, mild tenderness, nondistended. EXT: Extremities without clubbing, cyanosis, or edema. Results - Labs CBC & Chem 7: 03/01/18 06:45 03/01/18 06:45 Laboratory Results - last 24 hr 03/01/18 03/01/18 06:45 06:45 WBC 5.2 RBC 4.13 L Hgb 12.7 L Hct 37.0 L MCV 89.7 MCH 30.8 MCHC 34.4 RDW 13.5 Plt Count 141 L MPV 7.4 Neut % (Auto) 65.0 Lymph % (Auto) 18.5 [place] % (Auto) 10.8 H Eos % (Auto) 4.7 H Baso % (Auto) 1.0 Neut # (Auto) 3.4 Lymph # (Auto) 1.0 [place] # (Auto) 0.6 Eos # (Auto) 0.2 Baso # (Auto) 0.1 WBC Differential . Differential Comment Auto diff final Sodium 141 Potassium 3.6 Chloride 105 Carbon Dioxide 29.0 Anion Gap 7 BUN 5 L Creatinine 0.90 Estimated GFR 83 L Random Glucose 101 Calcium 8.1 L Total Bilirubin 2.7 H AST 39 H ALT 62 Alkaline Phosphatase 119 H Total Protein 5.7 L D Albumin 2.6 L Lipase 305 Microbiology 02/25/18 23:45 Blood - Peripheral Aerobic Blood Culture - Preliminary No growth in 3 days 02/25/18 23:45 Blood - Peripheral Anaerobic Blood Culture - Preliminary No growth in 3 days 02/25/18 23:30 Blood - Peripheral Aerobic Blood Culture - Preliminary No growth in 3 days 02/25/18 23:30 Blood - Peripheral Anaerobic Blood Culture - Preliminary No growth in 3 days - Imaging Abdomen/Pelvis CT 02/25/18 19:51 CONCLUSION: 1. 2 calcified gallstones. 2. Colonic diverticula without radiographic evidence of diverticulitis. Gallbladder Ultrasound 02/25/18 19:51 CONCLUSION: 1. 2 gallstones and probable sludge within the lumen. 2. Marked dilation of the common hepatic duct measuring up to 14 mm. No definite intraluminal defects seen. 3. Mild dilation of the central intrahepatic biliary ducts. 4. Mild hepatomegaly without focal lesion. Cholangiopancreatography MRI 02/26/18 00:00 CONCLUSION: 1. Gallbladder is distended with wall edema and contains at least 2 stones. Recent ultrasound indicated an absent sonographic Donaldson sign suggesting against acute cholecystitis. Therefore, these changes could also be seen with chronic cholecystitis. Nuclear medicine hepatobiliary examination is currently ordered and I can't evaluate for cystic duct obstruction. 2. Dilated common hepatic and common bile duct, as above. There is no intrahepatic bile duct dilatation in the distal common duct tapers to normal size near the ampulla. There is no common duct stone seen. The cause for the dilatation is not identified. GI Procedure 02/27/18 00:00 CONCLUSION: ERCP with a distended common bile duct and apparent balloon dilatation distally. Assessment and Plan - Assessment (1) Choledocholithiasis with obstruction Code(s): K80.51 - Calculus of bile duct without cholangitis or cholecystitis with obstruction Status: Acute Plan: Choledocholithiasis with obstruction - Pt is a 73 y/o male with hypertension, hyperlipidemia and coronary artery disease who presented to the ED at [facility] [place] [facility] on 02/25/18 with complaint of abdominal pain x 3 days prior to arrival. - CT scan Abd/pelvis (02/25/18) which demonstrated 2 gallstones and a right upper quadrant ultrasound demonstrating 2 gallstones with dilatation of the common hepatic duct and likely sludge accumulation. - His lipase and white blood cell count were normal at admission. - He had a low-grade fever of 100.4 following admission.. Gallbladder Ultrasound (02/25/18): 1. 2 gallstones and probable sludge within the lumen. 2. Marked dilation of the common hepatic duct measuring up to 14 mm. No definite intraluminal defects seen. 3. Mild dilation of the central intrahepatic biliary ducts. 4. Mild hepatomegaly without focal lesion. MRCP (02/26/18): 1. Gallbladder is distended with wall edema and contains at least 2 stones. Recent ultrasound indicated an absent sonographic Donaldson sign suggesting against acute cholecystitis. Therefore, these changes could also be seen with chronic cholecystitis. Nuclear medicine hepatobiliary examination is currently ordered and I can't evaluate for cystic duct obstruction. 2. Dilated common hepatic and common bile duct, as above. There is no intrahepatic bile duct dilatation in the distal common duct tapers to normal size near the ampulla. There is no common duct stone seen. The cause for the dilatation is not identified. - Patient was transferred from to [facility] for ERCP - GI following - ERCP (02/27/18) with Dr. Bridges: - per ERCP report: The ampulla was noted to be adjacent to a small duodenal diverticulum initial cannulation of the common bile duct was somewhat difficult a needle-knife sphincterotomy was performed and subsequently I was able to obtain easy cannulation of the common bile duct it was noted to be dilated with filling defects in the distal portion a generous sphincterotomy was performed and then using the 12 mm balloon we were able to extract 2 stones from the common bile duct thereafter the bile duct was noted to be free of any filling defects the intrahepatics were noted to be unremarkable with normal limits no gallbladder was seen - Clear liquid diet plan to advance as patient tolerates - Continue IV fluids - Pain medication - Antiemetic PRN - Cont. Zosyn - WBC on admission 12.6 -> 6.2 (02/27) -> 5.8 (02/28) -> 5.2 (03/01) - Total bilirubin 7.3 -> 6.6 (02/27) -> 6.4 (02/28) -> 2.7 (03/01) - AST 58 -> 47 (02/27)-> 70 (02/28) -> 39 (03/01) - ALT 79 -> 62 (02/27) -> 73 (02/28) -> 62 (03/01) - Alk phos 76 -> 128 (02/28) -> 119 (03/01) Hypertension - Continue patient's home Atenolol 50 mg PO daily and Lisinopril/HCTZ 20-12.5 daily with hold parameters Hyperlipidemia - Hold home statin due to elevated LFTs GERD (gastroesophageal reflux disease) - Continue PPI. (1) Choledocholithiasis with obstruction Qualifiers: Cholecystitis presence: without cholecystitis Qualified Code(s): K80.51 - Calculus of bile duct without cholangitis or cholecystitis with obstruction
--- NOTE | 2018-03-01 10:53 | P.DS ---
Date of admission: 02/25/18 22:23 Primary care physician: Itz Dominguez Attending physician on discharge: Shan Perry Anticipated date of discharge: 03/01/18 Brief History from admission: 73-year-old male known to me from previous outpatient care with history of hypertension, hyperlipidemia and coronary artery disease presented to the ER yesterday with complaint of abdominal pain which is actually been going on for approximately 3 days prior to arrival. Patient had been up at a hunting camp in [place] this past week doing some physical labor restoring the camp. He noted some abdominal pain and cramping after he ate some [place] sausage night which would have been approximately 3.5 days ago. He also noted that he had chills when the pain was really severe on the day prior to presentation. He has had persistent nausea but no vomiting. He denies any chest pain or shortness of breath. Denies any hemoptysis or hematemesis. No hematochezia or melena. His bowel movements have been a bit more firm over the last couple of days that he admittedly has not been eating or drinking much as this tends to cause a flare in his abdominal pain. Evaluation in the ER noted for CT scan which demonstrated 2 gallstones and a right upper quadrant ultrasound demonstrating 2 gallstones with dilatation of the common hepatic duct and likely sludge accumulation. His lipase and white blood cell count were normal. He did have a low-grade fever of 100.4 overnight. He has been started on antibiotics, anti-emetics, IV pain medication and IV fluid. He reports that he feels much better this morning. He was given a dose of IV Dilaudid in the ER and 3 mg morphine IV around 10:30 PM last night. He has not required any pain medication since that time. He still remains nauseated this morning but his abdominal pain is much improved he reports. He had episode of chills overnight as well. DS: Diagnosis - Discharge Diagnosis (1) Choledocholithiasis with obstruction Status: Acute DS: Summary Hospital Course: Choledocholithiasis with obstruction - Pt is a 73 y/o male with hypertension, hyperlipidemia and coronary artery disease who presented to the ED at [facility] on 02/25/18 with complaint of abdominal pain x 3 days prior to arrival. CT scan Abd/pelvis (02/25/18) which demonstrated 2 gallstones and a right upper quadrant ultrasound demonstrating 2 gallstones with dilatation of the common hepatic duct and likely sludge accumulation. His lipase and white blood cell count were normal at admission. He had a low-grade fever of 100.4 following admission.. Gallbladder Ultrasound (02/25/18): 1. 2 gallstones and probable sludge within the lumen. 2. Marked dilation of the common hepatic duct measuring up to 14 mm. No definite intraluminal defects seen. 3. Mild dilation of the central intrahepatic biliary ducts. 4. Mild hepatomegaly without focal lesion. MRCP (02/26/18): 1. Gallbladder is distended with wall edema and contains at least 2 stones. Recent ultrasound indicated an absent sonographic Donaldson sign suggesting against acute cholecystitis. Therefore, these changes could also be seen with chronic cholecystitis. Nuclear medicine hepatobiliary examination is currently ordered and I can't evaluate for cystic duct obstruction. 2. Dilated common hepatic and common bile duct, as above. There is no intrahepatic bile duct dilatation in the distal common duct tapers to normal size near the ampulla. There is no common duct stone seen. The cause for the dilatation is not identified. Patient was transferred from to [facility] for ERCP. Pt underwent ERCP (02/27/18) with Dr. Bridges: per ERCP report: The ampulla was noted to be adjacent to a small duodenal diverticulum initial cannulation of the common bile duct was somewhat difficult a needle-knife sphincterotomy was performed and subsequently I was able to obtain easy cannulation of the common bile duct it was noted to be dilated with filling defects in the distal portion a generous sphincterotomy was performed and then using the 12 mm balloon we were able to extract 2 stones from the common bile duct thereafter the bile duct was noted to be free of any filling defects the intrahepatics were noted to be unremarkable with normal limits no gallbladder was seen. Pt tolerated liquid diet prior to discharge. Advance to soft diet as patient tolerates upon discharge. Pt was started on Zosyn on 02/26/18. WBC on admission 12.6 -> 6.2 (02/27) -> 5.8 (02/28) -> 5.2 (03/01). Total bilirubin 7.3 -> 6.6 (02/27) -> 6.4 (02/28) -> 2.7 (10/3). AST 58 -> 47 (02/27)-> 70 (02/28) -> 39 (03/01). ALT 79 -> 62 (02/27) -> 73 (02/28) -> 62 (03/01). Alk phos 76 -> 128 (02/28) -> 119 (03/01). Pt is to followup with GI in 2 weeks She is to followup with her PCP, Dr. Dominguez, in 1 week Pt will need to followup with [facility] to discuss possible Lap Demi in 2-4 weeks. Hypertension - Continue patient's home Atenolol 50 mg PO daily and Lisinopril/HCTZ 20-12.5 daily Hyperlipidemia - Resume statin at discharge GERD (gastroesophageal reflux disease) - Continue PPI. - Time Spent with Patient Total time spent providing and/or coordinating discharge services: Greater than 30 minutes - Quality: VTE Deep Vein Thrombosis/Pulmonary Embolism Present on Admission: No Exam Vital signs: Vital Signs 02/28/18 12:00 02/28/18 12:39 02/28/18 15:49 Temperature 98.1 F Pulse Rate 67 70 Respiratory Rate 20 Blood Pressure 141/72 H Pulse Oximetry 96 94 L 02/28/18 16:00 02/28/18 19:35 03/01/18 00:00 Temperature 97.3 F L 98.7 F 98.1 F Pulse Rate 65 76 68 Respiratory Rate 20 16 18 Blood Pressure 160/73 H 134/67 121/64 Pulse Oximetry 97 97 95 03/01/18 04:00 03/01/18 06:13 03/01/18 08:00 Temperature 97.8 F 97.8 F Pulse Rate 70 69 Respiratory Rate 18 18 18 Blood Pressure 167/82 H 170/74 H Pulse Oximetry 96 95 Intake & Output 02/28/18 03/01/18 03/01/18 18:59 06:59 18:59 Intake Total 100 / 100 1320 / 1320 50 / 50 Output Total Balance 93 / 93 1115 / 1115 50 / 50 Weight 82.1 kg Intake: IV 100 / 100 50 / 50 50 / 50 Zosyn 3.375 GM Premix 50 ML @ 100 / 100 50 / 50 50 / 50 100 mls/hr IV.SIG Q8H BLAKE Rx#: [id number] Oral 1270 / 1270 Output: Urine Stool Other: # Voids 3 Date of Last Bowel Movement 02/28/18 02/28/18 # Bowel Movements 1 Results Procedures completed during hospitalization: See above Labs on day of discharge: Labs from last 24 hours 03/01/18 03/01/18 06:45 06:45 WBC 5.2 RBC 4.13 L Hgb 12.7 L Hct 37.0 L MCV 89.7 MCH 30.8 MCHC 34.4 RDW 13.5 Plt Count 141 L MPV 7.4 Neut % (Auto) 65.0 Lymph % (Auto) 18.5 [place] % (Auto) 10.8 H Eos % (Auto) 4.7 H Baso % (Auto) 1.0 Neut # (Auto) 3.4 Lymph # (Auto) 1.0 [place] # (Auto) 0.6 Eos # (Auto) 0.2 Baso # (Auto) 0.1 WBC Differential . Differential Comment Auto diff final Sodium 141 Potassium 3.6 Chloride 105 Carbon Dioxide 29.0 Anion Gap 7 BUN 5 L Creatinine 0.90 Estimated GFR 83 L Random Glucose 101 Calcium 8.1 L Total Bilirubin 2.7 H AST 39 H ALT 62 Alkaline Phosphatase 119 H Total Protein 5.7 L D Albumin 2.6 L Lipase 305 Preliminary micro results at discharge 02/25/18 23:45 Aerobic Blood Culture - Preliminary Blood - Peripheral No growth in 3 days Anaerobic Blood Culture - Preliminary No growth in 3 days 02/25/18 23:30 Aerobic Blood Culture - Preliminary Blood - Peripheral No growth in 3 days Anaerobic Blood Culture - Preliminary No growth in 3 days - Impressions ITS Impressions Abdomen/Pelvis CT 02/25/18 19:51 CONCLUSION: 1. 2 calcified gallstones. 2. Colonic diverticula without radiographic evidence of diverticulitis. Gallbladder Ultrasound 02/25/18 19:51 CONCLUSION: 1. 2 gallstones and probable sludge within the lumen. 2. Marked dilation of the common hepatic duct measuring up to 14 mm. No definite intraluminal defects seen. 3. Mild dilation of the central intrahepatic biliary ducts. 4. Mild hepatomegaly without focal lesion. Cholangiopancreatography MRI 02/26/18 00:00 CONCLUSION: 1. Gallbladder is distended with wall edema and contains at least 2 stones. Recent ultrasound indicated an absent sonographic Donaldson sign suggesting against acute cholecystitis. Therefore, these changes could also be seen with chronic cholecystitis. Nuclear medicine hepatobiliary examination is currently ordered and I can't evaluate for cystic duct obstruction. 2. Dilated common hepatic and common bile duct, as above. There is no intrahepatic bile duct dilatation in the distal common duct tapers to normal size near the ampulla. There is no common duct stone seen. The cause for the dilatation is not identified. GI Procedure 02/27/18 00:00 CONCLUSION: ERCP with a distended common bile duct and apparent balloon dilatation distally. Discharge Plan - Discharge Disposition Patient Disposition: Discharge Home - Discharge Condition Condition: Stable - Discharge Order Discharge Orders: Discharge Order (Routine); Ordered 03/01/18 Ordered By: Lisa Mcghee - Discharge Details Anticipated Discharge Date: 03/01/18 Discharge Comment: Followup with GI in 2 weeks, call for that appt. - Physicians Team Primary Care Provider: Itz Dominguez Attending Provider: Hussein Mosley Other Providers: Isaac Diego MD
--- NOTE | 2018-03-01 13:21 | P.PNGI ---
Subjective Interval history: Nausea much better no obvious vomiting mild abdominal soreness but no obvious abdominal pain <JamalDiana M - Last Filed: 03/01/18 13:18> Physical Exam Vital signs: Vital Signs 02/28/18 15:49 02/28/18 16:00 02/28/18 19:35 Temperature 97.3 F L 98.7 F Pulse Rate 65 76 Respiratory Rate 20 16 Blood Pressure 160/73 H 134/67 Pulse Oximetry 94 L 97 97 03/01/18 00:00 03/01/18 04:00 03/01/18 06:13 Temperature 98.1 F 97.8 F Pulse Rate 68 70 Respiratory Rate 18 18 18 Blood Pressure 121/64 167/82 H Pulse Oximetry 95 96 03/01/18 08:00 Temperature 97.8 F Pulse Rate 65 Respiratory Rate 18 Blood Pressure 170/74 H Pulse Oximetry 95 Intake & Output 02/28/18 03/01/18 03/01/18 18:59 06:59 18:59 Intake Total 100 / 100 1320 / 1320 50 / 50 Output Total 7 / 7 205 / 205 Balance 93 / 93 1115 / 1115 50 / 50 Weight 82.1 kg Intake: IV 100 / 100 50 / 50 50 / 50 Zosyn 3.375 GM Premix 50 ML @ 100 / 100 50 / 50 50 / 50 100 mls/hr IV.SIG Q8H BLAKE Rx#: [id number] Oral 1270 / 1270 Output: Urine 4 / 4 205 / 205 Stool 3 / 3 Other: # Voids 3 Date of Last Bowel Movement 02/28/18 02/28/18 # Bowel Movements 1 - Constitutional no acute distress - Routine HEENT Exam Head: Present: normocephalic ENT: Present: mucous membranes moist - Routine Respiratory Exam Present: accessory muscle use (No shortness of breath at rest) - Routine Cardiovascular Exam Present: S1, S2 - Routine Abdominal Exam Present: soft, normoactive bowel sounds ([place],) <Diana Berry - Last Filed: 03/01/18 13:18> Vital signs: Vital Signs 02/28/18 15:49 02/28/18 16:00 02/28/18 19:35 Temperature 97.3 F L 98.7 F Pulse Rate 65 76 Respiratory Rate 20 16 Blood Pressure 160/73 H 134/67 Pulse Oximetry 94 L 97 97 03/01/18 00:00 03/01/18 04:00 03/01/18 06:13 Temperature 98.1 F 97.8 F Pulse Rate 68 70 Respiratory Rate 18 18 18 Blood Pressure 121/64 167/82 H Pulse Oximetry 95 96 03/01/18 08:00 03/01/18 12:00 Temperature 97.8 F 97.8 F Pulse Rate 65 67 Respiratory Rate 18 18 Blood Pressure 170/74 H 168/86 H Pulse Oximetry 95 95 Intake & Output 02/28/18 03/01/18 03/01/18 18:59 06:59 18:59 Intake Total 100 / 100 1320 / 1320 50 / 50 Output Total 205 / 205 Balance 93 / 93 1115 / 1115 50 / 50 Weight 82.1 kg Intake: IV 100 / 100 50 / 50 50 / 50 Zosyn 3.375 GM Premix 50 ML @ 100 / 100 50 / 50 50 / 50 100 mls/hr IV.SIG Q8H BLAKE Rx#: [id number] Oral 1270 / 1270 Output: Urine Stool 3 / Other: # Voids 3 Date of Last Bowel Movement 02/28/18 02/28/18 # Bowel Movements 1 <Ethan Bridges E - Last Filed: 03/01/18 15:42> Results - Labs CBC & Chem 7: 03/01/18 06:45 03/01/18 06:45 Laboratory Results - last 24 hr 03/01/18 03/01/18 06:45 06:45 WBC 5.2 RBC 4.13 L Hgb 12.7 L Hct 37.0 L MCV 89.7 MCH 30.8 MCHC 34.4 RDW 13.5 Plt Count 141 L MPV 7.4 Neut % (Auto) 65.0 Lymph % (Auto) 18.5 [place] % (Auto) 10.8 H Eos % (Auto) 4.7 H Baso % (Auto) 1.0 Neut # (Auto) 3.4 Lymph # (Auto) 1.0 [place] # (Auto) 0.6 Eos # (Auto) 0.2 Baso # (Auto) 0.1 WBC Differential . Differential Comment Auto diff final Sodium 141 Potassium 3.6 Chloride 105 Carbon Dioxide 29.0 Anion Gap 7 BUN 5 L Creatinine 0.90 Estimated GFR 83 L Random Glucose 101 Calcium 8.1 L Total Bilirubin 2.7 H AST 39 H ALT 62 Alkaline Phosphatase 119 H Total Protein 5.7 L D Albumin 2.6 L Lipase 305 Microbiology 02/25/18 23:45 Blood - Peripheral Aerobic Blood Culture - Preliminary No growth in 4 days 02/25/18 23:45 Blood - Peripheral Anaerobic Blood Culture - Preliminary No growth in 4 days 02/25/18 23:30 Blood - Peripheral Aerobic Blood Culture - Preliminary No growth in 4 days 02/25/18 23:30 Blood - Peripheral Anaerobic Blood Culture - Preliminary No growth in 4 days - Procedures See above <Diana Berry - Last Filed: 03/01/18 13:18> - Labs CBC & Chem 7: 03/01/18 06:45 03/01/18 06:45 Laboratory Results - last 24 hr 03/01/18 03/01/18 06:45 06:45 WBC 5.2 RBC 4.13 L Hgb 12.7 L Hct 37.0 L MCV 89.7 MCH 30.8 MCHC 34.4 RDW 13.5 Plt Count 141 L MPV 7.4 Neut % (Auto) 65.0 Lymph % (Auto) 18.5 [place] % (Auto) 10.8 H Eos % (Auto) 4.7 H Baso % (Auto) 1.0 Neut # (Auto) 3.4 Lymph # (Auto) 1.0 [place] # (Auto) 0.6 Eos # (Auto) 0.2 Baso # (Auto) 0.1 WBC Differential . Differential Comment Auto diff final Sodium 141 Potassium 3.6 Chloride 105 Carbon Dioxide 29.0 Anion Gap 7 BUN 5 L Creatinine 0.90 Estimated GFR 83 L Random Glucose 101 Calcium 8.1 L Total Bilirubin 2.7 H AST 39 H ALT 62 Alkaline Phosphatase 119 H Total Protein 5.7 L D Albumin 2.6 L Lipase 305 Microbiology 02/25/18 23:45 Blood - Peripheral Aerobic Blood Culture - Preliminary No growth in 4 days 02/25/18 23:45 Blood - Peripheral Anaerobic Blood Culture - Preliminary No growth in 4 days 02/25/18 23:30 Blood - Peripheral Aerobic Blood Culture - Preliminary No growth in 4 days 02/25/18 23:30 Blood - Peripheral Anaerobic Blood Culture - Preliminary No growth in 4 days <Ethan Bridges - Last Filed: 03/01/18 15:42> Assessment and Plan - Plan 02/28/2018 patient is status post ERCP performed on 02/27/[address] Brdiges. Include choledocholithiasis and duodenal diverticulum generous sphincterotomy was performed using a 12 mm balloon. Extraction of 2 stones from the common bile duct without any further filling defects noted. Current labs on 02/28/2018 showed mild decrease in bilirubin 6.4, mild increase in AST 70, ALT 73 and alkaline phosphatase 128. Is now on clear liquid diet will consider increasing diet as tolerated. Hemoglobin 14.6 without any obvious bleeding. Patient drank clear liquids rapidly last night and a fairly large amount and did note some nausea but no vomiting. Encourage patient to eat very slowly and we will trial full liquids. If patient has increased abdominal pain or vomiting will go back to clear liquids. Possibly still need to consider surgical consult this week if patient's right upper quadrant or abdominal pain persist. 03/01/2018 hemoglobin 10.7 decreased bilirubin 2.7, AST 39 ALT 62, alkaline phosphatase 119. Diet advance to cardiac diet patient states nausea better no obvious vomiting no abdominal pain. Will monitor her tolerance of diet but from a GI standpoint patient can discharge and follow-up in the GI office. Labs are much improved and trending down to more normal range. Plan Diet full liquid diet increase to cardiac diet monitor for any acute nausea or vomiting Monitor labs Continue PPI Bowel regimen as needed Supportive care Follow-up in GI office after discharge Patient was seen per myself and Dr. Bridges, note was written on his behalf <Diana Berry M - Last Filed: 03/01/18 13:18> - Plan Patient seen and examined Agree with above Continue with current supportive care Monitor labs Follow-up with GI post discharge <Ethan Bridges - Last Filed: 03/01/18 15:42>
[2018-03-01 15:19] VITALS: BP 168/86; PULSE 67
[2018-03-01] MEDS ORDERED: Sodium Chloride 0.9% 2 ML Flush BID IV.FLUSH SCH (21:00)
== END 2018-03-01 14:48 | disposition home or self-care (01) ==
LOC: PHED 19:17 → PHEDA 22:23 → PH3 02-26 00:39 → N05 02-26 12:28
PROVIDERS: ADMIT Hospitalist; ATTEND Hospitalist